=== PATIENT | female | born 1980 | race Two or more races ===

== ENCOUNTER 2019-03-29 13:56 | Emergency (ER) | payer MEDICAID, OTHER ==
[~2019-03-29] VITALS: Ht 157.5 cm; Wt 72.6 kg
[~2019-03-29 13:56] MED LIST: BENAZEPRIL HCL20 MG; CIPROFLOXACIN500 M2 ORAL; METRONIDAZOLE500 MG ORAL; MICONAZOLE 11 EACH VG; NITROFURANTOIN100 M2 ORAL; NORCO 5-325 TA1 EACH ORAL; PHENYTOIN SODI100 MG; TENORMIN50 MG ORAL; TYLENOL #21 EA; VIBRAMYCIN100 MG ORAL; ZOFRAN ODT4 MG ORAL
[2019-03-29 14:00] VITALS: BP 176/104
--- NOTE | 2019-03-29 14:00 | Emergency Room Report ---
History of Present Illness General Chief Complaint: Seizure Source: Patient, EMS Present Illness HPI 39-year-old female possible history of epilepsy on carbamazepine as well as Keppra, comes in by ambulance for breakthrough seizure, patient had a tonic- clonic seizure witnessed at work lasting less than a minute with postictal. No bowel bladder retention/incontinence, blood sugar greater than 100, vital signs stable, patient refusing to be seen at this hospital, patient wants to leave AGAINST MEDICAL ADVICE without proper evaluation. Allergies: Coded Allergies: LORAZEPAM (Unverified Allergy, Unknown, 03/12/19) Patient History Past Medical History: see triage record Last Menstrual Period: 09/08/17 Now: No Reviewed Nursing Documentation: PMH: Agreed; PSxH: Agreed Nursing Documentation-PMH Past Medical History: No History, Except For Hx Hypertension: Yes Hx Seizures: Yes Review of Systems All Other Systems: negative except mentioned in HPI Physical Exam Vital Signs Date Time Temp Pulse Resp B/P (MAP) Pulse Ox O2 Delivery O2 Flow Rate FiO2 03/29/19 13:50 99.0 93 16 176/104 (128) 96 Room Air Sp02 EP Interpretation: reviewed General Appearance: well appearing, no apparent distress Head: normocephalic, atraumatic Eyes: bilateral eye PERRL, bilateral eye EOMI ENT: hearing grossly normal, normal voice Neck: full range of motion, supple Respiratory: no respiratory distress, speaking full sentences Musculoskeletal: normal inspection, gait/station normal Neurologic: alert, normal gait Psychiatric: mood/affect normal Skin: no rash Medical Decision Making Diagnostic Impression: Primary Impression: Epileptic seizure, generalized ER Course Patient with epileptic seizure breakthrough, currently taking Carbamazepine as well as Keppra does not want an evaluation wants to leave AGAINST MEDICAL ADVICE. Patient understands risks. The patient has requested to leave the ED against medical advice. The patient reason(s) for leaving include, but are not limited to, the following: "I do not like this hospital". I believe this patient is of sound mind and competent to refuse medical care. The patient is responding and asking questions appropriately. The patient is oriented to person, place and time. The patient is not psychotic, delusional, suicidal, homicidal or hallucinating. The patient demonstrates a normal mental capacity to make decisions regarding their healthcare. The patient is clinically sober and does not appear to be under the influence of any illicit drugs at this time. The patient has been advised of the risks, in layman terms, of leaving AMA which include, but are not limited to , coma, permanent disability, loss of current lifestyle, delay in diagnosis. Alternatives have been offered - the patient remains steadfast in their wish to leave. The patient has been advised that should they change their mind they are welcome to return to this hospital, or any other, at any time. The patient understands that in no way does an AMA discharge mean that I do not want them to have the best medical care available. To this end, I have provided appropriate prescriptions, referrals, and discharge instructions. The patient did/ sign AMA paperwork. The above discussion was witnessed by another member of staff. . Last Vital Signs Date Time Temp Pulse Resp B/P (MAP) Pulse Ox O2 Delivery O2 Flow Rate FiO2 03/29/19 13:50 99.0 93 16 176/104 (128) 96 Room Air Disposition: AGAINST MEDICAL ADVICE Condition: Stable Referrals: [facility] Patient Instructions: Seizure, Adult Additional Instructions: The patient was provided with discharge instructions, notified to follow-up with a primary care doctor and or specialist in the next 24-48 hours, and to return to the ED if they have worsening of their symptoms. Please note that this report is being documented using [employer] Score[employer] technology. This can lead to erroneous entry secondary to incorrect interpretation by the dictating instrument. Jaylan Darden MD Mar 29, 2019 14:00
--- NOTE | 2019-03-29 14:00 | NUR ---
ED Nurse Note: pt arrived via EMS for sz. pt had a szxz at work that was witnessed by coworkers. en route to ED pt had a sz witnessed by EMS personel that lasted 30 seconds. per EMS pt's blood sugar was 132. she is currently nauseated and complaining of a 9/10 headache
--- NOTE | 2019-03-29 14:01 | NUR ---
ED Nurse Note: Dr. Darden saw pt in the ambulance bay, pt is AOx4, pt states that she does not want to be treated at this hospital because she "doesn't like this hospital" and would like to sign out AMA. Addendum: 03/29/[address] Darden advised nidia pt leaving, he explained the risks of signing out AMA. pt verbalized understanding of the risks of leaving and would still like to leave. We asked the pt if she would like to contact family members to take her home but she refused and walked out of the ER with all of her belongings.
== END 2019-03-29 14:01 | disposition left against medical advice (07) ==
LOC: EDBD 13:56 → EMR 13:58
DX: G40.409 Other generalized epilepsy and epileptic syndromes, not intractable, without status epilepticus (principal); I10 Essential (primary) hypertension
CPT/HCPCS: 99282

== ENCOUNTER 2019-04-16 12:53 | Emergency (ER) | payer OTHER ==
[~2019-04-16] VITALS: Ht 154.9 cm; Wt 89.4 kg
[2019-04-16] MEDS ORDERED: KEPPRA500 M4 ORAL (12:55)
[2019-04-16] MEDS ORDERED: Hydromorphone 0.5mg/0.5ml inj IVP ONE ×2 (13:00→15:15)
[2019-04-16] MEDS ORDERED: levETIRAcetam 500mg/NS100ml 100 ML IVPB ONE (13:00)
[2019-04-16 13:09] VITALS: BP 148/104
--- NOTE | 2019-04-16 13:12 | NUR ---
ED Nurse Note: pt brought in to ER from work due to s/p seizure x2 witnessed by coworkers. per pt she has been vomiting for last 3 days. pt currently aao x4 and ambulatory. skin clean and intact. calm and cooperative. no acute distress noted at this moment. pt denied head trauma. 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
--- NOTE | 2019-04-16 13:21 | Emergency Room Report ---
History of Present Illness General Chief Complaint: Seizure Source: Patient, EMS Present Illness HPI Presents post seizure by paramedics. Is happened to work. She is been vomiting for several days. She try to take her Keppra but was unable to because she threw the pills back up. Paramedics found the patient postictal and she gradually improved. She is complaining about a severe headache at this time and nausea. She believes she fell back and hit the back of her head and upper back and neck. She denies any numbness and is able to move her head without severe pain in her neck. After seizures she frequently has severe headaches. She rates the pain 9/10 at this time throbbing and throughout her head without radiation. She is uncertain why she is been vomiting recently. She does have Zofran it does not seem to help. She alleges that she swells up when she gets Ativan. She states Dilantin did not control her seizures. She does not drive. Bruise R inner arm. Unknown how this occurred. No fevers, chills, sore throat, chest pain, palpitations, diarrhea, dysuria, abdominal pain, shortness of breath, rashes, depression, anxiety, visual changes , dizziness. The patient was seen March 29 after a seizure and left AGAINST MEDICAL ADVICE. The patient was seen in 2014 for abdominal pain and was labeled at that time with narcotic seeking behavior. Allergies: Coded Allergies: IODINE (Verified Allergy, Unknown, 04/16/19) KETOROLAC (Verified Allergy, Unknown, 04/16/19) LORAZEPAM (Unverified Allergy, Unknown, 03/12/19) Patient History Past Medical History: see triage record, old chart reviewed Social History: Denies: smoking, alcohol use, drug use Social History Narrative Works at [employer] Last Menstrual Period: 09/02/2016 Reviewed Nursing Documentation: PMH: Agreed; PSxH: Agreed Nursing Documentation-PMH Past Medical History: No History, Except For Hx Hypertension: Yes Hx Seizures: Yes Review of Systems All Other Systems: negative except mentioned in HPI Physical Exam Vital Signs Date Time Temp Pulse Resp B/P (MAP) Pulse Ox O2 Delivery O2 Flow Rate FiO2 04/16/19 12:52 98.2 90 18 148/104 (119) 98 Room Air Sp02 EP Interpretation: reviewed, normal General Appearance: well appearing, no apparent distress, GCS 15 Head: normocephalic, other - Slight tenderness base of Eyes: bilateral eye normal inspection, bilateral eye PERRL, bilateral eye EOMI ENT: moist mucus membranes - No lingual trauma Neck: supple, no bony tend, tender - Base of neck bilateral Respiratory: chest non-tender, lungs clear, normal breath sounds Cardiovascular #1: regular rate, rhythm Cardiovascular #2: 2+ radial (R) Gastrointestinal: normal inspection, normal bowel sounds, non tender, no mass, non-distended Musculoskeletal: back normal, gait/station normal, normal range of motion Neurologic: alert, oriented x3, auto dismantler III-XII nml as tested, motor strength/tone normal, DTRs symmetric, sensory intact, cerebellar normal, speech normal Psychiatric: mood/affect normal Skin: no rash, warm/dry Medical Decision Making Diagnostic Impression: Primary Impression: Seizure Additional Impressions: UTI (urinary tract infection) Qualified Codes: N30.00 - Acute cystitis without hematuria Neck contusion Qualified Codes: S10.93XA - Contusion of unspecified part of neck, initial encounter Vomiting Qualified Codes: R11.2 - Nausea with vomiting, unspecified ER Course Patient presents post seizure. Differential includes noncompliance, inability to take medication due to vomiting, elect light imbalance, breakthrough seizure amongst others. Based on her neurologic exam CT of the head is not indicated at this time. However labs and chest x-ray and EKG are. The patient received IV hydration, Zofran, Dilaudid and a dose of Keppra. She says that she is allergic to Ativan. Based on her physical exam C-spine not indicated. In addition CT of the head is not indicated. EKG without injury. Chest x-ray no infiltrates. CBC unremarkable. CMP with minimal hypokalemia. Urinalysis with pyuria. Tox screen negative. Patient treated with Macrobid. Pain 12/27 - Dilaudid repeat. Discussed treatment plan with patient. Advised of the need to follow-up. Patient improved and stable for outpatient observation and treatment. Laboratory Tests Test 04/16/19 13:20 White Blood Count 8.1 K/UL (4.8-10.8) Red Blood Count 4.42 M/UL (4.20-5.40) Hemoglobin 13.9 G/DL (12.0-16.0) Hematocrit 39.6 % (37.0-47.0) Mean Corpuscular Volume 89 FL (80-99) Mean Corpuscular Hemoglobin 31.3 PG (27.0-31.0) H Mean Corpuscular Hemoglobin Concent 35.0 G/DL (32.0-36.0) Red Cell Distribution Width 10.8 % (11.6-14.8) L Platelet Count 316 K/UL (150-450) Mean Platelet Volume 6.4 FL (6.5-10.1) L Neutrophils (%) (Auto) 59.6 % (45.0-75.0) Lymphocytes (%) (Auto) 32.1 % (20.0-45.0) Monocytes (%) (Auto) 5.5 % (1.0-10.0) Eosinophils (%) (Auto) 1.7 % (0.0-3.0) Basophils (%) (Auto) 1.1 % (0.0-2.0) Urine Color Pale yellow Urine Appearance Clear Urine pH 5 (4.5-8.0) Urine Specific [place] 1.015 (1.005-1.035) Urine Protein Negative (NEGATIVE) Urine Glucose (UA) Negative (NEGATIVE) Urine Ketones Negative (NEGATIVE) Urine Blood 3+ (NEGATIVE) H Urine Nitrite Negative (NEGATIVE) Urine Bilirubin Negative (NEGATIVE) Urine Urobilinogen Normal MG/DL (0.0-1.0) Urine Leukocyte Esterase 2+ (NEGATIVE) H Urine RBC 2-4 /HPF (0 - 2) H Urine WBC 5-10 /HPF (0 - 2) H Urine Squamous Epithelial Cells Occasional /LPF Urine Bacteria Occasional /HPF (NONE) Sodium Level 142 MMOL/L (136-145) Potassium Level 3.2 MMOL/L (3.5-5.1) L Chloride Level 103 MMOL/L (98-107) Carbon Dioxide Level 30 MMOL/L (21-32) Anion Gap 9 mmol/L (5-15) Blood Urea Nitrogen 6 mg/dL (7-18) L Creatinine 0.6 MG/DL (0.55-1.30) Estimate Glomerular Filtration Rate > 60 mL/min (>60) Glucose Level 95 MG/DL (74-106) Calcium Level 9.2 MG/DL (8.5-10.1) Total Bilirubin 0.3 MG/DL (0.2-1.0) Aspartate Amino Transferase (AST) 21 U/L (15-37) Alanine Aminotransferase (ALT) 26 U/L (12-78) Alkaline Phosphatase 75 U/L (46-116) Total Creatine Kinase 80 U/L (26-308) Total Protein 8.8 G/DL (6.4-8.2) H Albumin 4.2 G/DL (3.4-5.0) Globulin 4.6 g/dL Albumin/Globulin Ratio 0.9 (1.0-2.7) L Salicylates Level 1.2 ug/mL (2.8-20) L Urine Opiates Screen Negative (NEGATIVE) Acetaminophen Level < 2 MCG/ML (10-30) L Urine Barbiturates Screen Negative (NEGATIVE) Phencyclidine (PCP) Screen Negative (NEGATIVE) Urine Amphetamines Screen Negative (NEGATIVE) Urine Benzodiazepines Screen Negative (NEGATIVE) Urine Cocaine Screen Negative (NEGATIVE) Urine Marijuana (THC) Screen Negative (NEGATIVE) Serum Alcohol < 3 mg/dL EKG Diagnostic Results Rate: normal Rhythm: NSR ST Segments: no acute changes Rhythm Strip Diag. Results EP Interpretation: yes Rhythm: NSR, no PVC's, no ectopy Chest X-Ray Diagnostic Results Chest X-Ray Diagnostic Results : Chest X-Ray Ordered: Yes # of Views/Limited/Complete: 1 View Indication: Other EP Interpretation: Yes Interpretation: no consolidation, no effusion, no pneumothorax Impression: No acute disease Last Vital Signs Date Time Temp Pulse Resp B/P (MAP) Pulse Ox O2 Delivery O2 Flow Rate FiO2 04/16/19 16:08 97.9 78 18 136/95 99 Room Air Status: improved Disposition: HOME, SELF-CARE Condition: Improved Scripts Promethazine HCl (Promethegan) 25 Mg Supp.rect 25 MG RECTAL Q6H PRN for Nausea & Vomiting, #6 SUPP Prov: Donny Farrell MD 04/16/19 Promethazine Hcl* (PHENERGAN*) 25 Mg Tablet 25 MG ORAL Q8HR, #8 TAB 0 Refills Prov: Donny Farrell MD 04/16/19 Acetaminophen With Codeine (T#3) (TYLENOL #3 TAB*) Y Tab 1 TAB ORAL Q6HR PRN for For Pain, #8 TAB Prov: Donny Farrell MD 04/16/19 Donny Farrell MD Apr 16, 2019 13:21
[2019-04-16 13:56] LABS: APPEARANCE,URINE CLEAR; BILIRUBIN, URINE NEGATIVE (NEGATIVE); COLOR,URINE PALE YELLOW; GLUCOSE, URINE (UA) NEGATIVE (NEGATIVE); KETONES,URINE NEGATIVE (NEGATIVE); LEUKOCYTE ESTERASE ,URINE 2+ (NEGATIVE); NITRITE,URINE NEGATIVE (NEGATIVE); PH,URINE 5 (4.5-8.0); PROTEIN,URINE NEGATIVE (NEGATIVE); UROBILINOGEN,URINE NORMAL MG/DL (0.0-1.0)
[2019-04-16 13:59] LABS: BASOPHILS % (AUTO) 1.1 % (0.0-2.0); EOSINOPHILS % (AUTO) 1.7 % (0.0-3.0); HEMATOCRIT 39.6 % (37.0-47.0); HEMOGLOBIN 13.9 G/DL (12.0-16.0); LYMPHOCYTES % (AUTO) 32.1 % (20.0-45.0); MEAN CORPUSCULAR VOLUME 89 FL (80-99); MONOCYTES % (AUTO) 5.5 % (1.0-10.0); NEUTROPHILS % (AUTO) 59.6 % (45.0-75.0); PLATELET COUNT 316 K/UL (150-450); RED BLOOD COUNT 4.42 M/UL (4.20-5.40); RED CELL DISTRIBUTION WIDTH 10.8 % (11.6-14.8); WHITE BLOOD COUNT 8.1 K/UL (4.8-10.8)
[2019-04-16 14:06] LABS: ANION GAP 9 mmol/L (5-15); BLOOD UREA NITROGEN 6 mg/dL (7-18); CALCIUM 9.2 MG/DL (8.5-10.1); CARBON DIOXIDE 30 MMOL/L (21-32); CHLORIDE 103 MMOL/L (98-107); CREATININE 0.6 MG/DL (0.55-1.30); POTASSIUM 3.2 MMOL/L (3.5-5.1); SODIUM 142 MMOL/L (136-145)
[2019-04-16 14:10] LABS: ALANINE AMINOTRANSFERASE 26 U/L (12-78); ALBUMIN 4.2 G/DL (3.4-5.0); ALBUMIN/GLOBULIN RATIO 0.9 (1.0-2.7); ALKALINE PHOSPHATASE 75 U/L (46-116); ASPARTATE AMINO TRANSFERASE 21 U/L (15-37); BILIRUBIN,TOTAL 0.3 MG/DL (0.2-1.0); CREATINE KINASE 80 U/L (26-308)
--- NOTE | 2019-04-16 14:13 | Diagnostic Imaging Report ---
Indication: Dyspnea Comparison: 03/12/2019 A single view chest radiograph was obtained. Findings: Cardiomediastinal appearance is within normal limits for age. The lungs are clear. Pulmonary vascularity is appropriate. The diaphragmatic contour is smooth and costophrenic angles are sharp. No pleural effusions are identified. The bones are unremarkable. Impression: No acute findings
[2019-04-16] MEDS ORDERED: PHENERGAN SUPP25 MG RECTAL (15:16)
[2019-04-16] MEDS ORDERED: PHENERGAN25 M1 ORAL (15:16)
[2019-04-16] MEDS ORDERED: ACETAMINOPHEN-1 EAC1 ORAL (15:16)
--- NOTE | 2019-04-16 16:09 | NUR ---
ED Nurse Note: Pt cleared by health care Provider for discharge. DC instructions/prescription was given and explained to pt and verbalized understanding of teachings. All medical deviecs such as ID band removed. Pt is AAO x4, ambulatory and left with all personal belongings.
--- NOTE | 2019-04-17 16:47 | Cardiology Report ---
APPROVED REPORT EKG Measurement Heart [id number] Normal sinus rhythm Normal ECG
== END 2019-04-16 16:10 | disposition home or self-care (01) ==
LOC: EDBD 12:53 → EMR 13:08
DX: G40.909 Epilepsy, unspecified, not intractable, without status epilepticus (principal); S10.93XA Contusion of unspecified part of neck, initial encounter; N30.00 Acute cystitis without hematuria; R11.2 Nausea with vomiting, unspecified; R06.00 Dyspnea, unspecified; I10 Essential (primary) hypertension; Z91.041 Radiographic dye allergy status; Z88.8 Allergy status to other drugs, medicaments and biological substances; W18.39XA Other fall on same level, initial encounter; Y92.9 Unspecified place or not applicable
CPT/HCPCS: 36415; 71045; 80053; 80307; 81003; 82550; 85025; 93005; 96374; 96375; 96376; G0480; G0481; J1170; J1953; J2405; S0028; Z7502; 99284

== ENCOUNTER 2019-04-18 14:30 | Emergency (ER) | payer OTHER ==
[~2019-04-18] VITALS: Ht 167.6 cm; Wt 72.6 kg
[~2019-04-18 14:30] MED LIST changes: +ACETAMINOPHEN-1 EAC1 ORAL; +KEPPRA500 M4 ORAL; +PHENERGAN SUPP25 MG RECTAL; +PHENERGAN25 M1 ORAL
[2019-04-18 14:35] VITALS: BP 188/114
--- NOTE | 2019-04-18 14:35 | NUR ---
ED Nurse Note: Patient brought in to ED by 62 from work c/o multiple episodes of seizures, EMs states that the patient has had atleast 7, at time of arrival patient is alert and oriented x4. multiple staff has tried to insert an IV on patient, IV started on right AC 20 gauge, no head trauma noted. complains of upper abdominal pain accompanied by nausea, patient was palced on seizure precautions, side rails padded and bed at lowest position. will continue to monitor
[2019-04-18] MEDS ORDERED: Morphine Sulfate 4mg/ml Inj (IV USE ONLY) IVP ONE ×2 (14:45→17:00)
[2019-04-18] MEDS ORDERED: levETIRAcetam 1,000mg/NS100ml 100 ML IVPB ONE (14:45)
--- NOTE | 2019-04-18 14:50 | Emergency Room Report ---
History of Present Illness General Chief Complaint: Seizure Source: Patient Present Illness HPI Disclaimer: Please note that this report is being documented using DRAGON technology. This can lead to erroneous entry secondary to incorrect interpretation by the dictating instrument. HPI: 39-year-old female with a history of seizure disorder on Keppra and carbamazepine presents for evaluation after witnessed seizure activity. The patient was at work and was witnessed to have brief, less than 15 seconds, seizure-like activity on the left side of the face and left upper extremity. She states she has both focal seizures and generalized tonic-clonic seizures. She was seen in the emergency department 2 days ago with a similar presentation. She saw a neurologist yesterday but has not received the results of her EEG. She does not drive. Denies any head injury and paramedics state that bystanders lowered her to the ground without head injury. She denies any headache or neck or back pain. She states she has been unable to hold down her Keppra and carbamazepine for the past few days given persistent nausea and upper abdominal pain. This was her same presentation 2 days ago. Denies diarrhea, fevers. Continues to pass normal stools. Denies dysuria or hematuria but was treated for UTI 2 days ago with Macrobid. PMH: Seizure disorder PSH: None Allergies: Lorazepam, Toradol Social Hx: Drug or alcohol use Allergies: Coded Allergies: IODINE (Verified Allergy, Unknown, 04/16/19) KETOROLAC (Verified Allergy, Unknown, 04/16/19) LORAZEPAM (Unverified Allergy, Unknown, 03/12/19) Patient History Last Menstrual Period: n/a Nursing Documentation-PMH Past Medical History: No History, Except For Hx Hypertension: Yes Hx Seizures: Yes Review of Systems All Other Systems: negative except mentioned in HPI Physical Exam Vital Signs Date Time Temp Pulse Resp B/P (MAP) Pulse Ox O2 Delivery O2 Flow Rate FiO2 04/18/19 14:28 99.0 88 18 177/114 (135) 98 Room Air General: Awake and alert, no acute distress HEENT: NC/AT. EOMI. PERRLA. Visual davis are full. No nystagmus. Facial expressions are symmetrical. No facial droop. Cardiovascular: RRR. S1 and S2 normal. No murmur appreciated Resp: Normal work of breathing. No cough, wheezing or crackles appreciated Abdomen: Abdomen is soft, nondistended. Tender in the epigastrium. No rebound. Abdomen is obese and difficult to appreciate any masses. Skin: Intact. No abrasions, laceration or rash over the exposed skin MSK: Normal tone and bulk. Moving all extremities. No obvious deformity. There is no drift in the upper or lower extremities bilaterally. Neuro: Awake and alert. Mentating appropriately. Facial expression symmetrical. No dysarthria, no ataxia. Sensation to light touch is intact over the upper and lower extremities. The patient has intact speech with good repetition, comprehension. Fund of knowledge is full. No aphasi Medical Decision Making ER Course 39-year-old female with a history of seizure disorder presents for evaluation after several seizures witnessed by bystanders at work without head injury. Patient had a similar presentation 2 days ago. She was treated with Macrobid for pyuria but denies any pelvic pain or dysuria currently. She has been unable to hold down her medications due to a gastric illness over the past few days. She is requesting medication for nausea and vomiting. Originally, she stated she does not want a laboratory work-up given her recent trip to the emergency department and neurology evaluation yesterday but now is amenable. We will start a metabolic and infectious work-up and repeat a urinalysis. Do not see indication for CT scans of the head or cervical spine but will obtain a CT scan of the abdomen and pelvis given her severe abdominal pain. Will load with Keppra, given IV fluid bolus, antiemetics and pain medication. Laboratory Tests Test 04/18/19 15:10 White Blood Count 7.5 K/UL (4.8-10.8) Red Blood Count 4.44 M/UL (4.20-5.40) Hemoglobin 14.2 G/DL (12.0-16.0) Hematocrit 39.1 % (37.0-47.0) Mean Corpuscular Volume 88 FL (80-99) Mean Corpuscular Hemoglobin 31.9 PG (27.0-31.0) H Mean Corpuscular Hemoglobin Concent 36.3 G/DL (32.0-36.0) H Red Cell Distribution Width 9.8 % (11.6-14.8) L Platelet Count 314 K/UL (150-450) Mean Platelet Volume 6.5 FL (6.5-10.1) Neutrophils (%) (Auto) 62.8 % (45.0-75.0) Lymphocytes (%) (Auto) 28.7 % (20.0-45.0) Monocytes (%) (Auto) 5.4 % (1.0-10.0) Eosinophils (%) (Auto) 1.8 % (0.0-3.0) Basophils (%) (Auto) 1.3 % (0.0-2.0) Urine Color Pale yellow Urine Appearance Slightly cloudy Urine pH 6.5 (4.5-8.0) Urine Specific [place] 1.015 (1.005-1.035) Urine Protein 1+ (NEGATIVE) H Urine Glucose (UA) Negative (NEGATIVE) Urine Ketones Negative (NEGATIVE) Urine Blood 3+ (NEGATIVE) H Urine Nitrite Negative (NEGATIVE) Urine Bilirubin Negative (NEGATIVE) Urine Urobilinogen Normal MG/DL (0.0-1.0) Urine Leukocyte Esterase 2+ (NEGATIVE) H Urine RBC 5-10 /HPF (0 - 2) H Urine WBC 15-20 /HPF (0 - 2) H Urine Squamous Epithelial Cells Many /LPF (NONE/OCC) H Urine Bacteria Moderate /HPF (NONE) H Urine HCG, Qualitative Negative (NEGATIVE) Sodium Level 141 MMOL/L (136-145) Potassium Level 3.2 MMOL/L (3.5-5.1) L Chloride Level 104 MMOL/L (98-107) Carbon Dioxide Level 29 MMOL/L (21-32) Anion Gap 8 mmol/L (5-15) Blood Urea Nitrogen 9 mg/dL (7-18) Creatinine 0.6 MG/DL (0.55-1.30) Estimate Glomerular Filtration Rate > 60 mL/min (>60) Glucose Level 100 MG/DL (74-106) Calcium Level 8.9 MG/DL (8.5-10.1) Total Bilirubin 0.3 MG/DL (0.2-1.0) Aspartate Amino Transferase (AST) 42 U/L (15-37) H Alanine Aminotransferase (ALT) 42 U/L (12-78) Alkaline Phosphatase 83 U/L (46-116) Total Protein 8.5 G/DL (6.4-8.2) H Albumin 4.1 G/DL (3.4-5.0) Globulin 4.4 g/dL Albumin/Globulin Ratio 0.9 (1.0-2.7) L Salicylates Level 1.0 ug/mL (2.8-20) L Urine Opiates Screen Positive (NEGATIVE) H Acetaminophen Level < 2 MCG/ML (10-30) L Urine Barbiturates Screen Negative (NEGATIVE) Carbamazepine (Tegretol) Level 10.1 ug/mL (4.0-12.0) Phencyclidine (PCP) Screen Negative (NEGATIVE) Urine Amphetamines Screen Negative (NEGATIVE) Urine Benzodiazepines Screen Negative (NEGATIVE) Urine Cocaine Screen Negative (NEGATIVE) Urine Marijuana (THC) Screen Negative (NEGATIVE) Serum Alcohol < 3 mg/dL EKG Diagnostic Results EKG Time: 15:41 Rate: normal Rhythm: NSR ST Segments: no acute changes Other Impression Sinus rhythm with normal axis, normal intervals, no ST segment changes. There are inverted T waves in the inferior leads, III, aVF as well as in V5, V6. Rhythm Strip Diag. Results Rhythm Strip Time: 15:41 EP Interpretation: yes Rate: 80s Rhythm: NSR, no PVC's, no ectopy Reevaluation Time: 17:43 Last Vital Signs Date Time Temp Pulse Resp B/P (MAP) Pulse Ox O2 Delivery O2 Flow Rate FiO2 04/18/ 14:28 99.0 88 18 177/114 (135) 98 Room Air Reevaluation Impression CT scan of the abdomen and pelvis is largely unremarkable. Labs have returned within normal limits. No significant white count, normal renal function, no electrolyte abnormalities aside from slight hypokalemia demonstrated on prior ER visits. Carbamazepine level is therapeutic. Patient is positive for opiates which she received in the emergency department prior to giving us a urine sample. There is evidence of acute urinary tract infection. She has been prescribed Macrobid but unable to take it over the past few days given her significant vomiting. We will discontinue Phenergan and start the patient on Zofran. She is instructed to continue taking her Macrobid. She will follow-up with her neurologist and continue her anti-epileptic medications as prescribed for now. Patient does not drive. We discussed safety precautions regarding her seizure disorder. She is to follow-up the results of her recent neurologic testing and to discuss with her neurologist possible medication adjustments given her frequent seizures. Her abdominal pain is now controlled. She will be discharged home with outpatient follow-up. She understands and agrees with this treatment plan will be discharged. Disposition: HOME, SELF-CARE Condition: Improved Scripts Ondansetron Odt* (ZOFRAN ODT*) 4 Mg Tab.rapdis 4 MG BC EVERY 6 HOURS PRN for Nausea & Vomiting, #203 TAB 0 Refills Prov: James Gallegos MD 04/18/19 Acetaminophen With Codeine (T#3) (TYLENOL #3 TAB*) Y Tab 1 TAB ORAL Q6HR PRN for For Pain, #8 TAB Prov: James Gallegos MD 04/18/19 James Gallegos MD Apr 18, 2019 14:50
[2019-04-18] MEDS ORDERED: Omnipaque-300 100ml vial INJ PRN (15:30)
[2019-04-18] MEDS ORDERED: DiphenhydrAMINE 50mg/ml Inj IVP ONE (15:30)
[2019-04-18 15:48] LABS: BILIRUBIN, URINE NEGATIVE (NEGATIVE); COLOR,URINE PALE YELLOW; GLUCOSE, URINE (UA) NEGATIVE (NEGATIVE); KETONES,URINE NEGATIVE (NEGATIVE); LEUKOCYTE ESTERASE ,URINE 2+ (NEGATIVE); NITRITE,URINE NEGATIVE (NEGATIVE); PH,URINE 6.5 (4.5-8.0); PROTEIN,URINE 1+ (NEGATIVE); UROBILINOGEN,URINE NORMAL MG/DL (0.0-1.0)
[2019-04-18 15:51] LABS: APPEARANCE,URINE SLIGHTLY CLOUDY
[2019-04-18 16:03] LABS: BASOPHILS % (AUTO) 1.3 % (0.0-2.0); EOSINOPHILS % (AUTO) 1.8 % (0.0-3.0); HEMATOCRIT 39.1 % (37.0-47.0); HEMOGLOBIN 14.2 G/DL (12.0-16.0); LYMPHOCYTES % (AUTO) 28.7 % (20.0-45.0); MEAN CORPUSCULAR VOLUME 88 FL (80-99); MONOCYTES % (AUTO) 5.4 % (1.0-10.0); NEUTROPHILS % (AUTO) 62.8 % (45.0-75.0); PLATELET COUNT 314 K/UL (150-450); RED BLOOD COUNT 4.44 M/UL (4.20-5.40); RED CELL DISTRIBUTION WIDTH 9.8 % (11.6-14.8); WHITE BLOOD COUNT 7.5 K/UL (4.8-10.8)
[2019-04-18 16:05] LABS: ANION GAP 8 mmol/L (5-15); BLOOD UREA NITROGEN 9 mg/dL (7-18); CALCIUM 8.9 MG/DL (8.5-10.1); CARBON DIOXIDE 29 MMOL/L (21-32); CHLORIDE 104 MMOL/L (98-107); CREATININE 0.6 MG/DL (0.55-1.30); POTASSIUM 3.2 MMOL/L (3.5-5.1); SODIUM 141 MMOL/L (136-145)
[2019-04-18 16:10] LABS: ALANINE AMINOTRANSFERASE 42 U/L (12-78); ALBUMIN 4.1 G/DL (3.4-5.0); ALBUMIN/GLOBULIN RATIO 0.9 (1.0-2.7); ALKALINE PHOSPHATASE 83 U/L (46-116); ASPARTATE AMINO TRANSFERASE 42 U/L (15-37); BILIRUBIN,TOTAL 0.3 MG/DL (0.2-1.0)
--- NOTE | 2019-04-18 17:01 | Diagnostic Imaging Report ---
Indication: Abdominal pain Technique: Continuous helical transaxial imaging of the abdomen and pelvis was obtained from the lung bases to the pubic symphysis during intravenous contrast administration. Coronal 2-D reformats were also obtained. Study obtained in a Siemens sensation [address] Automatic Exposure Control was utilized. Total Dose length Product (DLP): [address] Dose Index Volume (CTDIvol): 2.6 mGy Comparison: 10/05/2013 Findings: The lung bases are clear. Cholecystectomy noted. Liver and spleen are unremarkable. There is no hydronephrosis. No free fluid identified. No evidence of bowel obstruction. Uterus noted. Appendix is normal. Urinary bladder is unremarkable. IMPRESSION: No acute findings Status post cholecystectomy. The CT scanner at [facility] is accredited by the [employer] and the scans are performed using dose optimization techniques as appropriate to a performed exam including Automatic Exposure control.
[2019-04-18 17:18] VITALS: BP 170/105
[2019-04-18 17:40] VITALS: BP 150/88
[2019-04-18] MEDS ORDERED: ONDANSETRON ODT4 MG BC (17:40)
[2019-04-18] MEDS ORDERED: ACETAMINOPHEN-1 EAC1 ORAL (17:40)
--- NOTE | 2019-04-18 17:40 | NUR ---
ER DISCHARGE NOTE: Patient is cleared to be discharged per ERMD, pt is aox4, on room air, with stable vital signs. pt was given dc and prescription instructions, pt was able to verbalize understanding, pt id band and iv site removed without complications. pt is able to ambulate with steady gait. pt took all belongings.
--- NOTE | 2019-04-20 15:22 | Cardiology Report ---
APPROVED REPORT EKG Measurement Heart [id number] [id number] Normal sinus rhythm T wave abnormality, consider inferior ischemia Abnormal ECG
== END 2019-04-18 17:40 | disposition home or self-care (01) ==
LOC: EDBD 14:30 → EMR 15:00
DX: G40.909 Epilepsy, unspecified, not intractable, without status epilepticus (principal); R10.10 Upper abdominal pain, unspecified; R11.0 Nausea; Z88.8 Allergy status to other drugs, medicaments and biological substances; I10 Essential (primary) hypertension; E87.6 Hypokalemia; N39.0 Urinary tract infection, site not specified
CPT/HCPCS: 36415; 74177; 80053; 80156; 80307; 81003; 81025; 85025; 87086; 93005; 96361; 96365; 96375; 96376; G0480; G0481; J1200; J1953; J2270; J2405; Q9967; Z7502; 99284; J7030

== ENCOUNTER 2019-04-22 13:00 | Emergency (ER) | payer OTHER ==
[~2019-04-22] VITALS: Ht 167.6 cm; Wt 81.6 kg
[2019-04-22 13:00] VITALS: BP 145/85
[~2019-04-22 13:00] MED LIST changes: +ONDANSETRON ODT4 MG BC
--- NOTE | 2019-04-22 13:00 | NUR ---
ED Nurse Note: Pt BIBA RA 61 from [employer] [place] d/t having a seizure witnessed by co-workers. Seizure lasted for 40 seconds; pt denies trauma. Pt is A&O x4, V/S stable with no s/s of acute distress noted at this time. Pt is connected to the threat monitoring analyst, side rails padded with bed in lowest position.
--- NOTE | 2019-04-22 13:05 | Emergency Room Report ---
History of Present Illness General Chief Complaint: Seizure Present Illness HPI Patient is a 39-year-old female brought in by EMS after witnessed seizure. Patient was working at [employer]. She was noted to have approximately 4-minute seizure. 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 She had seizure approximately 2 to 3 days ago. She had multiple episodes of vomiting recently and had been having increased difficulty keeping down her medications. Patient states she additionally takes atenolol for hypertension.Patient states that she has not had a period for approximately 1-1/ 2 years.Reports prior tubal ligation. Allergies: Coded Allergies: IODINE (Verified Allergy, Unknown, 04/16/19) KETOROLAC (Verified Allergy, Unknown, 04/16/19) LORAZEPAM (Unverified Allergy, Unknown, 03/12/19) Patient History Past Medical History: see triage record Reviewed Nursing Documentation: PMH: Agreed; PSxH: Agreed Nursing Documentation-PMH Hx Hypertension: Yes Hx Seizures: Yes Review of Systems All Other Systems: negative except mentioned in HPI Physical Exam Vital Signs Date Time Temp Pulse Resp B/P (MAP) Pulse Ox O2 Delivery O2 Flow Rate FiO2 04/22/19 12:53 98.4 95 16 15/85 (62) 97 Sp02 EP Interpretation: reviewed, normal General Appearance: normal inspection, well appearing, no apparent distress, alert, GCS 15, obese Head: atraumatic ENT: normal ENT inspection, hearing grossly normal, normal voice Neck: normal inspection, full range of motion, supple, no bony tend Respiratory: normal inspection, lungs clear, normal breath sounds, no respiratory distress, no retraction, no wheezing Cardiovascular #1: regular rate, rhythm, no edema Gastrointestinal: normal inspection, normal bowel sounds, non tender, soft, no guarding, no hernia Genitourinary: no CVA tenderness Musculoskeletal: normal inspection, back normal, normal range of motion Neurologic: normal inspection, alert, oriented x3, responsive, 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 Differential diagnosis include was not limited to medication noncompliance, head injury, urinary tract infection, among others. Because of complexity of patient's case laboratory tests were ordered. Patient was noted to be awake and alert. Patient was noted to have brief seizure. She did complain of some headache and Tylenol was ordered. Patient apparently decided that she did not want to start remain in the hospital subsequently and decided that she wanted to leave the hospital without laboratory testing results. Patient was advised that she could return at any time. Patient does not appear to require any narcotic pain medications at this time. And this would likely make her headaches worse. Patient also refused anticonvulsants in the emergency department. Patient was advised risk benefits alternatives of leaving AGAINST MEDICAL ADVICE and she indicated understanding and wished to leave. She did not appear to have any continued alteration of her mental status at the time of AMA. Labs Test 04/22/19 13:35 White Blood Count 7.7 K/UL (4.8-10.8) Red Blood Count 4.28 M/UL (4.20-5.40) Hemoglobin 13.5 G/DL (12.0-16.0) Hematocrit 38.2 % (37.0-47.0) Mean Corpuscular Volume 89 FL (80-99) Mean Corpuscular Hemoglobin 31.5 PG (27.0-31.0) Mean Corpuscular Hemoglobin Concent 35.3 G/DL (32.0-36.0) Red Cell Distribution Width 10.6 % (11.6-14.8) Platelet Count 327 K/UL (150-450) Mean Platelet Volume 6.3 FL (6.5-10.1) Neutrophils (%) (Auto) 59.2 % (45.0-75.0) Lymphocytes (%) (Auto) 31.5 % (20.0-45.0) Monocytes (%) (Auto) 6.2 % (1.0-10.0) Eosinophils (%) (Auto) 2.3 % (0.0-3.0) Basophils (%) (Auto) 0.8 % (0.0-2.0) Urine Color Yellow Urine Appearance Clear Urine pH 6.5 (4.5-8.0) Urine Specific [place] 1.015 (1.005-1.035) Urine Protein 1+ (NEGATIVE) Urine Glucose (UA) Negative (NEGATIVE) Urine Ketones 1+ (NEGATIVE) Urine Blood 2+ (NEGATIVE) Urine Nitrite Negative (NEGATIVE) Urine Bilirubin Negative (NEGATIVE) Urine Urobilinogen Normal MG/DL (0.0-1.0) Urine Leukocyte Esterase 2+ (NEGATIVE) Urine RBC 2-4 /HPF (0 - 2) Urine WBC 5-10 /HPF (0 - 2) Urine Squamous Epithelial Cells Few /LPF (NONE/OCC) Urine Bacteria Few /HPF (NONE) Urine Mucus Few /LPF (NONE/OCC) Urine HCG, Qualitative Negative (NEGATIVE) Troponin I 0.000 ng/mL (0.000-0.056) Carbamazepine (Tegretol) Level 8.6 ug/mL (4.0-12.0) Last Vital Signs Date Time Temp Pulse Resp B/P (MAP) Pulse Ox O2 Delivery O2 Flow Rate FiO2 04/22/19 12:53 98.4 95 16 15/85 (62) 97 Status: improved Disposition: AGAINST MEDICAL ADVICE Condition: Stable Matt Ball MD Apr 22, 2019 13:05
[2019-04-22] MEDS ORDERED: levETIRAcetam 500 MG in D5W 110 ML IV ONE (13:15)
--- NOTE | 2019-04-22 13:40 | NUR ---
ED Nurse Note: Patient refused Keppra IV and Tylenol. ERMD aware.
[2019-04-22] MEDS ORDERED: Acetaminophen 500mg (ES) tab ORAL ONE (13:45)
[2019-04-22 13:50] VITALS: BP 138/79
[2019-04-22 13:51] LABS: BASOPHILS % (AUTO) 0.8 % (0.0-2.0); EOSINOPHILS % (AUTO) 2.3 % (0.0-3.0); HEMATOCRIT 38.2 % (37.0-47.0); HEMOGLOBIN 13.5 G/DL (12.0-16.0); LYMPHOCYTES % (AUTO) 31.5 % (20.0-45.0); MEAN CORPUSCULAR VOLUME 89 FL (80-99); MONOCYTES % (AUTO) 6.2 % (1.0-10.0); NEUTROPHILS % (AUTO) 59.2 % (45.0-75.0); PLATELET COUNT 327 K/UL (150-450); RED BLOOD COUNT 4.28 M/UL (4.20-5.40); RED CELL DISTRIBUTION WIDTH 10.6 % (11.6-14.8); WHITE BLOOD COUNT 7.7 K/UL (4.8-10.8)
[2019-04-22 13:56] LABS: APPEARANCE,URINE CLEAR; BILIRUBIN, URINE NEGATIVE (NEGATIVE); GLUCOSE, URINE (UA) NEGATIVE (NEGATIVE); KETONES,URINE 1+ (NEGATIVE); LEUKOCYTE ESTERASE ,URINE 2+ (NEGATIVE); NITRITE,URINE NEGATIVE (NEGATIVE); PH,URINE 6.5 (4.5-8.0); PROTEIN,URINE 1+ (NEGATIVE); UROBILINOGEN,URINE NORMAL MG/DL (0.0-1.0)
[2019-04-22 14:03] LABS: COLOR,URINE YELLOW
--- NOTE | 2019-04-22 14:03 | NUR ---
AMA: SEE AMA FORM. Patient is aox4, on room air, with stable vital signs. pt was instructed about the risks of leaving AMA. Pt was able to verbalize understanding, pt id band and iv site removed without complications. pt is able to ambulate with steady gait. pt took all belongings.
--- NOTE | 2019-04-24 07:27 | Cardiology Report ---
APPROVED REPORT EKG Measurement Heart [id number] [place] 176P9 [id number] Normal sinus rhythm Normal ECG
== END 2019-04-22 14:50 | disposition home or self-care (01) ==
LOC: EDBD 13:00 → EMR 14:45
DX: G40.909 Epilepsy, unspecified, not intractable, without status epilepticus (principal); I10 Essential (primary) hypertension; Z79.899 Other long term (current) drug therapy; R11.10 Vomiting, unspecified; Z91.041 Radiographic dye allergy status; Z88.8 Allergy status to other drugs, medicaments and biological substances; R51 Headache
CPT/HCPCS: 36415; 80156; 81003; 81025; 82962; 84484; 85025; 93005; Z7502; 99283

== ENCOUNTER 2019-05-04 13:06 | Emergency (ER) | payer OTHER ==
[~2019-05-04] VITALS: Ht 162.6 cm; Wt 68.0 kg
[2019-05-04 13:10] VITALS: BP 158/106
--- NOTE | 2019-05-04 13:10 | NUR ---
ED Nurse Note: PT BROUGHT IN BY RA Guerra FROM WORK DUE TO SEIZURE ACTIVITY TONIC CLONIC X 60 SEC WITNESSED BY HER CO WORKERS. PT TOOK HER KEPPRA 500MG THIS MORNING. PT CAME IN WITH A HEADACHE AND NECK PAIN. HARD NECK-COLLAR IN PLACE. AAO X4, FOLLOWS COMMANDS WITH NON LABORED BREATHING.
[2019-05-04] MEDS ORDERED: Acetaminophen 500mg (ES) tab ORAL ONE (13:30)
--- NOTE | 2019-05-04 13:40 | Emergency Room Report ---
History of Present Illness General Chief Complaint: Seizure Source: Patient Present Illness HPI This patient is well-known to [facility]. She has a history of seizure disorder and regularly presents with pseudoseizure and narcotic seeking behavior. She was recently seen within the last week for the same issue. She states that today at work she had a witnessed tonic-clonic seizure. She states she has been taking her Keppra. She states she was not feeling well last night and today at work. She works at [employer]. She states she was talking to a coworker whenever she woke up on the "floor." She states that she does not like [facility] and was very upset that EMS brought her to this facility. She states that she always has a headache and the physicians at this facility treat her poorly and treat her like she is a drug addict. That she gets a headache after her seizures. She states she is allergic to Toradol and she does not take Motrin. She states she does not want to be seen here at [facility]. Allergies: Coded Allergies: IODINE (Verified Allergy, Unknown, 04/16/19) KETOROLAC (Verified Allergy, Unknown, 04/16/19) LORAZEPAM (Unverified Allergy, Unknown, 03/12/19) Patient History Past Medical History: see triage record, HTN, seizures Social History: Denies: smoking, alcohol use, drug use Last Menstrual Period: n/a Reviewed Nursing Documentation: PMH: Agreed; PSxH: Agreed Nursing Documentation-PMH Hx Hypertension: Yes Hx Seizures: Yes Review of Systems All Other Systems: negative except mentioned in HPI Physical Exam Vital Signs Date Time Temp Pulse Resp B/P (MAP) Pulse Ox O2 Delivery O2 Flow Rate FiO2 05/04/19 13:00 98.4 89 18 190/116 (140) 98 Room Air Sp02 EP Interpretation: reviewed, normal General Appearance: no apparent distress, alert, GCS 15, non-toxic Head: normocephalic, atraumatic Eyes: bilateral eye normal inspection ENT: hearing grossly normal, normal pharynx, no angioedema, normal voice Neck: normal inspection, full range of motion Respiratory: chest non-tender, lungs clear, normal breath sounds, no respiratory distress, no retraction, no accessory muscle use, speaking full sentences Cardiovascular #1: regular rate, rhythm, no edema Rectal: deferred Musculoskeletal: back normal, gait/station normal, normal range of motion Neurologic: alert, oriented x3, responsive, motor strength/tone normal, sensory intact, speech normal Psychiatric: judgement/insight normal, memory normal, mood/affect normal, no suicidal/homicidal ideation Skin: no rash, normal color Medical Decision Making Diagnostic Impression: Primary Impression: Seizure disorder ER Course This patient primarily complained about the care that she receives at this facility. I did explain to the patient that I was happy to evaluate her in a respectful manner. The patient has recently had blood work and so I did not feel that laboratory evaluation was indicated. I had plan on obtaining a EKG, cxr and urinalysis and giving her Keppra and oral acetaminophen. However, when I left the room the patient eloped from the emergency department. I suspect this patient is narcotic seeking as she had consistent behavior with this. She was treated very respectful and kindly by myself and the nursing staff. Last Vital Signs Date Time Temp Pulse Resp B/P (MAP) Pulse Ox O2 Delivery O2 Flow Rate FiO2 05/04/19 13:10 98.6 80 16 158/106 98 Room Air Status: improved Disposition: ELOPED Condition: Stable Haylee Rae DO May 04, 2019 13:40
[2019-05-04 13:44] VITALS: BP 158/106
--- NOTE | 2019-05-04 13:44 | NUR ---
ED Nurse Note: PT WAS NOT FOUND IN ER AND [facility]. NO IV ACCESS. AAO X4 AND AMBULATORY. DR RIVAS AND CHARGE NURSE WERE NOTIFIED.
== END 2019-05-04 13:44 | disposition left against medical advice (07) ==
LOC: EDBD 13:06 → EMR 13:30
DX: G40.909 Epilepsy, unspecified, not intractable, without status epilepticus (principal); I10 Essential (primary) hypertension; Z88.8 Allergy status to other drugs, medicaments and biological substances; Z53.29 Procedure and treatment not carried out because of patient's decision for other reasons
CPT/HCPCS: 99283

== ENCOUNTER 2019-05-11 09:47 | Emergency (ER) | payer OTHER ==
[~2019-05-11] VITALS: Ht 154.9 cm; Wt 84.8 kg
[2019-05-11] MEDS ORDERED: CARBAMAZEPINE200 MG ORAL (09:50)
[2019-05-11 10:00] VITALS: BP 187/131
--- NOTE | 2019-05-11 10:00 | NUR ---
ED Nurse Note:pt. was BIBA from work, s/p seizures VSS, A/Ox4 ambulatory with steady gait, seizure precautions and placed on marketing services vice president
--- NOTE | 2019-05-11 10:03 | Emergency Room Report ---
History of Present Illness General Chief Complaint: Seizure Source: Patient, Medical Record Present Illness HPI Patient presents with complaints of seizure activity Patient reports that she gets multiple seizures she is on 2 different medications including Keppra She has been having her medications adjusted by her physician Also reports that she has been under increased stress recently also had a mild upper respiratory infection Feels that these are lowering her threshold for seizure activity Patient also gets increasingly worsening headaches after her seizures Which is again present today after her seizure Patient reports that she was at work she was in the back room when she was reported to have a tonic-clonic witnessed seizure Patient had complained of some low back pain After a fall she had yesterday after a seizure activity Allergies: Coded Allergies: IODINE (Verified Allergy, Unknown, 04/16/19) KETOROLAC (Verified Allergy, Unknown, 04/16/19) LORAZEPAM (Unverified Allergy, Unknown, 03/12/19) Patient History Past Medical History: see triage record Last Menstrual Period: 09/04/2017 Reviewed Nursing Documentation: PMH: Agreed; PSxH: Agreed Nursing Documentation-PMH Past Medical History: No History, Except For Hx Hypertension: Yes Hx Gastrointestinal Problems: Yes - cholecystectomy Hx Seizures: Yes Review of Systems All Other Systems: negative except mentioned in HPI Physical Exam Vital Signs Date Time Temp Pulse Resp B/P (MAP) Pulse Ox O2 Delivery O2 Flow Rate FiO2 05/11/19 09:45 98.2 84 16 187/131 (149) 99 Room Air Sp02 EP Interpretation: reviewed, normal General Appearance: well appearing, no apparent distress Head: normocephalic, atraumatic Eyes: bilateral eye PERRL, bilateral eye EOMI ENT: hearing grossly normal, normal pharynx, TMs + canals normal, uvula midline Neck: full range of motion, supple, no meningismus, no bony tend Respiratory: lungs clear, normal breath sounds, no rhonchi, no respiratory distress, no retraction, no accessory muscle use Cardiovascular #1: normal peripheral pulses, regular rate, rhythm, no edema, no gallop, no JVD, no murmur Gastrointestinal: normal bowel sounds, non tender, soft, no mass, no organomegaly, non-distended, no guarding, no hernia, no pulsatile mass, no rebound Genitourinary: no CVA tenderness Musculoskeletal: normal inspection Neurologic: motor strength/tone 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, 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, oriented x3 , sensory intact, responsive Psychiatric: mood/affect normal Skin: no rash Lymphatic: normal inspection, no adenopathy Medical Decision Making Diagnostic Impression: Primary Impression: Seizure disorder Additional Impression: Headache ER Course Multiple differentials and consideration including but not limited to neurological, neurosurgical infectious process, Patient is neurologically intact has a benign evaluation at this time continues to feel better I did not feel that further imaging was required given the exam and previous history Patient remains appropriate and will have close outpatient follow-up Rhythm Strip Diag. Results EP Interpretation: yes Rate: 80 Rhythm: NSR, no PVC's, no ectopy Last Vital Signs Date Time Temp Pulse Resp B/P (MAP) Pulse Ox O2 Delivery O2 Flow Rate FiO2 05/11/19 09:45 98.2 84 16 187/131 (149) 99 Room Air Status: improved Disposition: HOME, SELF-CARE Condition: Improved Referrals: [facility],REFERRING (PCP) Additional Instructions: Patient is provided with the discharge instructions notified to follow up with primary doctor in the next 2-3 days otherwise return to the er with any worsening symptoms. Please note that this report is being documented using [employer] technology. This can lead to erroneous entry secondary to incorrect interpretation by the dictating instrument. Adolfo Humphrey DO May 11, 2019 10:03
[2019-05-11] MEDS ORDERED: Tylenol #3 tab (300mg/30mg) ORAL ONE (10:15)
[2019-05-11 10:48] VITALS: BP 149/100
[2019-05-11 10:49] VITALS: BP 149/100
--- NOTE | 2019-05-11 10:50 | NUR ---
ER DISCHARGE NOTE: Patient is cleared to be discharged per ERMD, pt is aox4, on room air, with stable vital signs. pt was given dc instructions, pt was able to verbalize understanding, pt is able to ambulate with steady gait. pt took all belongings.
== END 2019-05-11 11:00 | disposition home or self-care (01) ==
LOC: EDBD 09:47 → EMR 09:53
DX: G40.909 Epilepsy, unspecified, not intractable, without status epilepticus (principal); R51 Headache; M54.5 Low back pain; I10 Essential (primary) hypertension; Z90.49 Acquired absence of other specified parts of digestive tract; Z88.8 Allergy status to other drugs, medicaments and biological substances
CPT/HCPCS: 99283

== ENCOUNTER 2019-05-14 12:03 | Emergency (ER) | payer OTHER ==
[~2019-05-14] VITALS: Ht 154.9 cm; Wt 89.4 kg
--- NOTE | 2019-05-14 12:02 | NUR ---
ED Nurse Note: PT ARRIVED WITH RA 69, D/T SEIZURE AT WORK X 30 MINUTES AGO. PT DENIES HEAD TRAUMA. PT IS AOX 4 ON ROOM AIR, SINUS RHYTHM. PT BS IS 93. VSS, PT REFUSES IV BLOOD DRAW AND MEDICATION ADMINSITRATION. PT STATES "I DONT LIKE THIS HOSPITAL ID RATHER BE AMA. I DONT WANT ANYTHING DONE HERE". ERMD AT BEDSIDE SPEAKING TO PT.
[~2019-05-14 12:03] MED LIST changes: +CARBAMAZEPINE200 MG ORAL; +D5NS 1,000 ML IV ONE
[2019-05-14 12:04] VITALS: BP 130/70
--- NOTE | 2019-05-14 12:06 | NUR ---
AMA: SEE AMA FORM.
[2019-05-14] MEDS ORDERED: KEPPRA1000 MG ORAL (12:09)
--- NOTE | 2019-05-14 12:09 | Emergency Room Report ---
History of Present Illness General Chief Complaint: Seizure Source: Patient Present Illness HPI 39-year-old female presents with witnessed seizure tonic-clonic lasting 30 seconds, no known aggravating relieving factors severity was moderate, patient had a glucose in the rig of 96 patient states she feels fine, no bowel bladder incontinence, no tongue biting, patient is back to baseline refusing treatment Allergies: Coded Allergies: IODINE (Verified Allergy, Unknown, 04/16/19) KETOROLAC (Verified Allergy, Unknown, 04/16/19) LORAZEPAM (Unverified Allergy, Unknown, 03/12/19) Patient History Past Medical History: see triage record Reviewed Nursing Documentation: PMH: Agreed; PSxH: Agreed Nursing Documentation-PMH Hx Hypertension: Yes Hx Gastrointestinal Problems: Yes - cholecystectomy Hx Seizures: Yes Review of Systems All Other Systems: negative except mentioned in HPI Physical Exam Vital Signs Date Time Temp Pulse Resp B/P (MAP) Pulse Ox O2 Delivery O2 Flow Rate FiO2 05/14/19 11:55 98.1 87 19 130/70 (90) 98 Room Air Sp02 EP Interpretation: reviewed, normal General Appearance: well appearing, no apparent distress, alert Head: normocephalic, atraumatic Eyes: bilateral eye PERRL, bilateral eye EOMI ENT: uvula midline, moist mucus membranes Neck: supple, thyroid normal, supple/symm/no masses Respiratory: lungs clear, no respiratory distress, no retraction, no accessory muscle use Cardiovascular #1: normal peripheral pulses, regular rate, rhythm, no edema, no gallop, no murmur Gastrointestinal: non tender, soft, no guarding, no rebound Musculoskeletal: normal inspection Neurologic: alert, oriented x3 Psychiatric: mood/affect normal Skin: no rash, warm/dry Medical Decision Making Diagnostic Impression: Primary Impression: Epileptic seizure, generalized Additional Impression: UTI (urinary tract infection) Qualified Codes: N30.01 - Acute cystitis with hematuria ER Course 39-year-old female presents with seizure disorder, refusing treatment states she is back to baseline does not want any treatment states she does not like this hospital The patient has requested to leave the ED against medical advice. The patient reason(s) for leaving include, but are not limited to, the following: "I do not like this hospital". I believe this patient is of sound mind and competent to refuse medical care. The patient is responding and asking questions appropriately. The patient is oriented to person, place and time. The patient is not psychotic, delusional, suicidal, homicidal or hallucinating. The patient demonstrates a normal mental capacity to make decisions regarding their healthcare. The patient is clinically sober and does not appear to be under the influence of any illicit drugs at this time. The patient has been advised of the risks, in layman terms, of leaving AMA which include, but are not limited to , coma, permanent disability, loss of current lifestyle, delay in diagnosis. Alternatives have been offered - the patient remains steadfast in their wish to leave. The patient has been advised that should they change their mind they are welcome to return to this hospital, or any other, at any time. The patient understands that in no way does an AMA discharge mean that I do not want them to have the best medical care available. To this end, I have provided appropriate prescriptions, referrals, and discharge instructions. The patient did sign AMA paperwork. The above discussion was witnessed by another member of staff. She was amenable to me increasing her keppra. Dispo home w/ return precautions Evaluation 12:10 PM, patient had a seizure as she was walking out patient amenable to staying. CT head negative, labs show a positive UTI, which is possibly triggering her seizures Ceftriaxone started, patient also given a Keppra load will increase her home Keppra Disposition home with return precautions Laboratory Tests Test 05/14/19 12:15 05/14/19 12:51 White Blood Count 8.4 K/UL (4.8-10.8) Red Blood Count 4.76 M/UL (4.20-5.40) Hemoglobin 14.7 G/DL (12.0-16.0) Hematocrit 42.6 % (37.0-47.0) Mean Corpuscular Volume 89 FL (80-99) Mean Corpuscular Hemoglobin 30.8 PG (27.0-31.0) Mean Corpuscular Hemoglobin Concent 34.4 G/DL (32.0-36.0) Red Cell Distribution Width 11.2 % (11.6-14.8) L Platelet Count 324 K/UL (150-450) Mean Platelet Volume 6.3 FL (6.5-10.1) L Neutrophils (%) (Auto) 60.1 % (45.0-75.0) Lymphocytes (%) (Auto) 28.3 % (20.0-45.0) Monocytes (%) (Auto) 5.0 % (1.0-10.0) Eosinophils (%) (Auto) 5.3 % (0.0-3.0) H Basophils (%) (Auto) 1.3 % (0.0-2.0) Sodium Level 140 MMOL/L (136-145) Potassium Level 3.7 MMOL/L (3.5-5.1) Chloride Level 102 MMOL/L (98-107) Carbon Dioxide Level 30 MMOL/L (21-32) Anion Gap 8 mmol/L (5-15) Blood Urea Nitrogen 13 mg/dL (7-18) Creatinine 0.6 MG/DL (0.55-1.30) Estimate Glomerular Filtration Rate > 60 mL/min (>60) Glucose Level 94 MG/DL (74-106) Calcium Level 8.7 MG/DL (8.5-10.1) Total Bilirubin 0.2 MG/DL (0.2-1.0) Aspartate Amino Transferase (AST) 21 U/L (15-37) Alanine Aminotransferase (ALT) 26 U/L (12-78) Alkaline Phosphatase 78 U/L (46-116) Total Protein 8.7 G/DL (6.4-8.2) H Albumin 4.3 G/DL (3.4-5.0) Globulin 4.4 g/dL Albumin/Globulin Ratio 1.0 (1.0-2.7) Lipase 235 U/L (73-393) Carbamazepine (Tegretol) Level 8.6 ug/mL (4.0-12.0) Urine Color Pale yellow Urine Appearance Clear Urine pH 6.5 (4.5-8.0) Urine Specific Brun[place] 1.015 (1.005-1.035) Urine Protein 2+ (NEGATIVE) H Urine Glucose (UA) Negative (NEGATIVE) Urine Ketones Negative (NEGATIVE) Urine Blood 2+ (NEGATIVE) H Urine Nitrite Negative (NEGATIVE) Urine Bilirubin Negative (NEGATIVE) Urine Urobilinogen Normal MG/DL (0.0-1.0) Urine Leukocyte Esterase 3+ (NEGATIVE) H Urine RBC 5-10 /HPF (0 - 2) H Urine WBC 10-15 /HPF (0 - 2) H Urine Squamous Epithelial Cells Few /LPF (NONE/OCC) Urine Bacteria Few /HPF (NONE) Urine HCG, Qualitative Negative (NEGATIVE) EKG Diagnostic Results EKG Time: 12:23 EP Interpretation: SR, rate 88, QTc 459, no acute ST elevations, normal axis CT/MRI/US Diagnostic Results CT/MRI/US Diagnostic Results : Impression Comparison: none Findings: The size and configuration of the cortical sulci, basal cisterns, and ventricles are within normal limits for age. There is no mass effect, midline shift, or edema identified. There is no evidence of acute hemorrhage or abnormal intra- axial or extra-axial fluid collections. The bones and soft tissues are unremarkable. Impression: No mass effect, edema or acute bleed. The CT scanner at [facility] is accredited by the [employer] and the scans are performed using dose optimization techniques as appropriate to a performed exam including Automatic Exposure control. Dictated By: Jose Peters MD Electronically Signed By: Jose Peters MD Signed Date/Time 05/14/19 1337 CC: Jaylan Darden MD Procedure: CT Abdomen Pelvis WO Contrast Indication: Abdominal pain Technique: Continuous helical transaxial imaging of the abdomen and pelvis was obtained from the lung bases to the pubic symphysis. No intravenous contrast was administered. Coronal 2-D reformats were also obtained. Automatic Exposure Control was utilized. Total Dose length Product (DLP): [address] Dose Index Volume (CTDIvol): 5 mGy Comparison: 08/03/2013 Findings: The lung bases are clear. There is no nephrolithiasis or hydronephrosis. Bladder is mildly distended. Uterus is present. There are few diverticula in the colon but no evidence of diverticulitis. The appendix is normal. There is no free fluid. Small bowel hernia containing fat demonstrated. Cholecystectomy noted. IMPRESSION: No acute findings. Diverticulosis of the colon. No definite diverticulitis. Normal appendix Status post cholecystectomy The CT scanner at [facility] is accredited by the [employer] and the scans are performed using dose optimization techniques as appropriate to a performed exam including Automatic Exposure control. Dictated By: Jose Peters MD Electronically Signed By: Jose Peters MD Signed Date/Time 05/14/19 1538 CC: Jaylan Darden MD Last Vital Signs Date Time Temp Pulse Resp B/P (MAP) Pulse Ox O2 Delivery O2 Flow Rate FiO2 05/14/19 12:04 87 19 Room Air 05/14/19 12:04 98.1 130/70 98 Disposition: HOME, SELF-CARE Condition: Stable Scripts Cephalexin* (KEFLEX*) 500 Mg Tablet 500 MG ORAL EVERY 6 HOURS, #28 CAP Prov: Jaylan Darden MD 05/14/19 Levetiracetam (KEPPRA) 1,000 Mg Tablet 1000 MG ORAL BID, #60 TAB 0 Refills Prov: Jaylan Darden MD 05/14/19 Referrals: [facility] Patient Instructions: Seizure, Adult, Urinary Tract Infection, [id number] Additional Instructions: The patient was provided with discharge instructions, notified to follow-up with a primary care doctor and or specialist in the next 24-48 hours, and to return to the ED if they have worsening of their symptoms. Please note that this report is being documented using DRAGON technology. This can lead to erroneous entry secondary to incorrect interpretation by the dictating instrument. Jaylan Darden MD May 14, 2019 12:09
[2019-05-14] MEDS ORDERED: AMMONIA INHALANT INH ONE ×2 (12:11→12:15)
--- NOTE | 2019-05-14 12:11 | NUR ---
ED Nurse Note: PER ERMD, VERBAL ORDER, OVERRIDE AMMONIA
--- NOTE | 2019-05-14 12:12 | NUR ---
ED Nurse Note: PT AMBULATED TO WAITING ROOM AND HAD A SEIZURE. PT WAS ASSISTED TO RNEY AND PLACED AND SEIZURE PRECAUTIONS WERE INITATED. PT PLACED ON APPRAISAL ANALYST. PT PLACED IN GOWN, IV SITE ESTABLISED, PATENT AND INTACT. BLOOD SPECIMEN COLLECTED AND SENT TO LAB.
[2019-05-14 12:15] VITALS: BP 160/90
[2019-05-14] MEDS ORDERED: levETIRAcetam 1,000mg/NS100ml 100 ML IVPB ONE (12:30)
[2019-05-14 12:44] LABS: BASOPHILS % (AUTO) 1.3 % (0.0-2.0); EOSINOPHILS % (AUTO) 5.3 % (0.0-3.0); HEMATOCRIT 42.6 % (37.0-47.0); HEMOGLOBIN 14.7 G/DL (12.0-16.0); LYMPHOCYTES % (AUTO) 28.3 % (20.0-45.0); MEAN CORPUSCULAR VOLUME 89 FL (80-99); NEUTROPHILS % (AUTO) 60.1 % (45.0-75.0); PLATELET COUNT 324 K/UL (150-450); RED BLOOD COUNT 4.76 M/UL (4.20-5.40); RED CELL DISTRIBUTION WIDTH 11.2 % (11.6-14.8); WHITE BLOOD COUNT 8.4 K/UL (4.8-10.8)
[2019-05-14] MEDS ORDERED: Morphine Sulfate 4mg/ml Inj (IV USE ONLY) IVP ONE ×2 (12:45→14:15)
[2019-05-14] MEDS ORDERED: Acetaminophen 500mg (ES) tab ORAL ONE (12:45)
--- NOTE | 2019-05-14 12:49 | NUR ---
ED Nurse Note: ASSISTED PT ON BED GASTELUM, URINE SPECIMEN COLLECTED AND SENT TO LAB
[2019-05-14 12:50] LABS: ANION GAP 8 mmol/L (5-15); BLOOD UREA NITROGEN 13 mg/dL (7-18); CALCIUM 8.7 MG/DL (8.5-10.1); CARBON DIOXIDE 30 MMOL/L (21-32); CHLORIDE 102 MMOL/L (98-107); CREATININE 0.6 MG/DL (0.55-1.30); POTASSIUM 3.7 MMOL/L (3.5-5.1); SODIUM 140 MMOL/L (136-145)
--- NOTE | 2019-05-14 12:50 | NUR ---
ED Nurse Note: PT SENT TO CT
[2019-05-14 12:55] LABS: ALANINE AMINOTRANSFERASE 26 U/L (12-78); ALBUMIN 4.3 G/DL (3.4-5.0); ALKALINE PHOSPHATASE 78 U/L (46-116); ASPARTATE AMINO TRANSFERASE 21 U/L (15-37); BILIRUBIN,TOTAL 0.2 MG/DL (0.2-1.0)
[2019-05-14 13:00] LABS: APPEARANCE,URINE CLEAR; BILIRUBIN, URINE NEGATIVE (NEGATIVE); COLOR,URINE PALE YELLOW; GLUCOSE, URINE (UA) NEGATIVE (NEGATIVE); KETONES,URINE NEGATIVE (NEGATIVE); LEUKOCYTE ESTERASE ,URINE 3+ (NEGATIVE); NITRITE,URINE NEGATIVE (NEGATIVE); PH,URINE 6.5 (4.5-8.0); PROTEIN,URINE 2+ (NEGATIVE); UROBILINOGEN,URINE NORMAL MG/DL (0.0-1.0)
--- NOTE | 2019-05-14 13:31 | NUR ---
ED Nurse Note: PT WENT FOR ABDOMENT CT.
--- NOTE | 2019-05-14 13:42 | Diagnostic Imaging Report ---
Indication: Headache Technique: Contiguous 5 mm thick transaxial imaging of the head obtained in a Siemens Sensation [address] scanner. Soft tissue and bone windows generated. Automatic Exposure Control was utilized. Total Dose length Product (DLP): [address] Dose Index Volume (CTDIvol): 62.7 mGy Comparison: none Findings: The size and configuration of the cortical sulci, basal cisterns, and ventricles are within normal limits for age. There is no mass effect, midline shift, or edema identified. There is no evidence of acute hemorrhage or abnormal intra-axial or extra-axial fluid collections. The bones and soft tissues are unremarkable. Impression: No mass effect, edema or acute bleed. The CT scanner at [facility] is accredited by the [employer] and the scans are performed using dose optimization techniques as appropriate to a performed exam including Automatic Exposure control.
--- NOTE | 2019-05-14 13:44 | NUR ---
ED Nurse Note: PT RETURNED FROM THE CT.
[2019-05-14] MEDS: cefTRIAXone 1 GM in NS 55 ML IVPB ONE ×3 (13:53→14:26)
[2019-05-14] MEDS: DiphenhydrAMINE 50mg/ml Inj IVP ONE ×2 (14:25→14:27)
[2019-05-14 14:31] VITALS: BP 160/90
[2019-05-14] MEDS ORDERED: CEPHALEXIN500 M1 ORAL (15:15)
--- NOTE | 2019-05-14 15:44 | Diagnostic Imaging Report ---
Indication: Abdominal pain Technique: Continuous helical transaxial imaging of the abdomen and pelvis was obtained from the lung bases to the pubic symphysis. No intravenous contrast was administered. Coronal 2-D reformats were also obtained. Automatic Exposure Control was utilized. Total Dose length Product (DLP): [address] Dose Index Volume (CTDIvol): 5 mGy Comparison: 08/03/2013 Findings: The lung bases are clear. There is no nephrolithiasis or hydronephrosis. Bladder is mildly distended. Uterus is present. There are few diverticula in the colon but no evidence of diverticulitis. The appendix is normal. There is no free fluid. Small bowel hernia containing fat demonstrated. Cholecystectomy noted. IMPRESSION: No acute findings. Diverticulosis of the colon. No definite diverticulitis. Normal appendix Status post cholecystectomy The CT scanner at [facility] is accredited by the [employer] and the scans are performed using dose optimization techniques as appropriate to a performed exam including Automatic Exposure control.
[2019-05-14 16:15] VITALS: BP 155/100
--- NOTE | 2019-05-14 16:15 | NUR ---
ER DISCHARGE NOTE: Patient is cleared to be discharged per ERMD, pt is aox4, on room air, with stable vital signs. pt was given dc and prescription instructions, pt was able to verbalize understanding, pt id band and iv site removed without complications. pt is able to ambulate with steady gait. pt took all belongings. pt left all by self, ambulatory. vss.
== END 2019-05-14 16:15 | disposition home or self-care (01) ==
LOC: EDBD 12:03 → EMR 13:25
DX: G40.909 Epilepsy, unspecified, not intractable, without status epilepticus (principal); N30.01 Acute cystitis with hematuria; I10 Essential (primary) hypertension; Z90.49 Acquired absence of other specified parts of digestive tract; K57.90 Diverticulosis of intestine, part unspecified, without perforation or abscess without bleeding
CPT/HCPCS: 36415; 70450; 74176; 80053; 80156; 81003; 81025; 83690; 85025; 87086; 93005; 96365; 96375; 96376; J0696; J1200; J1953; J2270; J2405; Z7502; 99285

== ENCOUNTER 2019-05-28 10:40 | Emergency (ER) | payer OTHER ==
[~2019-05-28] VITALS: Ht 165.1 cm; Wt 77.1 kg
[~2019-05-28 10:40] MED LIST changes: +CEPHALEXIN500 M1 ORAL; -D5NS 1,000 ML IV ONE; +KEPPRA1000 MG ORAL
[2019-05-28 10:44] VITALS: BP 167/121
--- NOTE | 2019-05-28 10:44 | NUR ---
ED Nurse Note: Patient came into the ER via ambulance by RA 68 and she was reported of having a seizure when she was at work, coworkers assisted her to the ground. No signs of trauma. Seizure lasted 60 sec. Patient states that she has a persistent headache for a week. Patient states a pain score of 10/10. Placed patient in gown and on the diagnostic cardiac sonographer.
--- NOTE | 2019-05-28 10:57 | Emergency Room Report ---
History of Present Illness General Chief Complaint: Seizure Source: Patient, EMS Present Illness HPI Patient presents after having a seizure at work. This was witnessed. She has recurrent seizures. In the past she has had subtherapeutic anticonvulsant levels. She claims she is taking all of her pills as ordered. She has been complaining about right-sided headache for the last week. She has been taking Motrin and Tylenol without relief. She believes it might be coming from her neck as she seems to have noises when she moves her neck about. She denies any fevers or chills. There is some dysuria. The patient takes Keppra and carbamazepine. She denies any trauma or pain from the seizure itself. She did not but bite her tongue. There was no incontinence. Patient was transported by paramedics. Accu-Chek was normal in the field. She rates the headache pain at 10/10, aching right-sided and coming from her neck. This is consistent with the pain she was feeling before the seizure. In the past when she presents post seizure she has headaches. In the past there is been difficulty with analgesia administration addition. No sore throat, chest pain, palpitations, nausea, vomiting, diarrhea, abdominal pain, shortness of breath, rashes, depression, anxiety, visual changes, dizziness. She alleges allergy to Ativan. History of hypertension. Allergies: Coded Allergies: IODINE (Verified Allergy, Unknown, 04/16/19) KETOROLAC (Verified Allergy, Unknown, 04/16/19) LORAZEPAM (Unverified Allergy, Unknown, 03/12/19) Patient History Past Medical History: see triage record Social History: Denies: smoking, alcohol use, drug use Social History Narrative Works at [employer] Reviewed Nursing Documentation: PMH: Agreed; PSxH: Agreed Nursing Documentation-PMH Hx Hypertension: Yes Hx Gastrointestinal Problems: Yes - cholecystectomy Hx Seizures: Yes Review of Systems All Other Systems: negative except mentioned in HPI Physical Exam Vital Signs Date Time Temp Pulse Resp B/P (MAP) Pulse Ox O2 Delivery O2 Flow Rate FiO2 05/28/19 10:33 98.8 96 16 173/116 (135) 98 Room Air Sp02 EP Interpretation: reviewed, normal General Appearance: well appearing, no apparent distress, GCS 15 Head: normocephalic, atraumatic Eyes: bilateral eye normal inspection, bilateral eye PERRL, bilateral eye EOMI ENT: moist mucus membranes - No lingual macerations Neck: full range of motion, supple, no bony tend, tender - Right muscle masses Respiratory: chest non-tender, lungs clear, normal breath sounds Cardiovascular #1: regular rate, rhythm Cardiovascular #2: 2+ radial (R) Gastrointestinal: normal inspection, normal bowel sounds, non tender, no mass, non-distended Musculoskeletal: back normal, normal range of motion, gait/station normal Neurologic: alert, motor strength/tone normal, residential driver III-XII nml as tested, DTRs symmetric, oriented x3, sensory intact, cerebellar normal, speech normal Psychiatric: depressed affect Skin: no rash, warm/dry Medical Decision Making Diagnostic Impression: Primary Impression: Seizure Additional Impressions: Cervical radicular pain Hypertension Qualified Codes: I10 - Essential (primary) hypertension ER Course Patient presents post seizure. Differential includes electrolyte and balance, medical noncompliance, breakthrough seizure amongst others. Evaluation with EKG , chest x-ray and labs. The patient will be treated with a dose of phenobarbital and also treated for pain. She will receive IV hydration. The patient is placed on a monitoring analyst. CT of the head is not indicated based on history and physical exam. EKG no injury. Chest x-ray no infiltrates. Labs with normal carbamazepine level and otherwise unremarkable. Potassium minimally low. No evidence of urinary tract infection. Patient improved with treatment. Discussed results with patient. Also discussed the possibility of preventing seizures by taking a dose of phenobarbital before going to work. The patient has an appointment with her doctor this afternoon. Patient stable for outpatient observation and treatment. Laboratory Tests Test 05/28/19 11:45 05/28/19 11:55 Sodium Level 138 MMOL/L (136-145) Potassium Level 3.1 MMOL/L (3.5-5.1) L Chloride Level 97 MMOL/L (98-107) L Carbon Dioxide Level 31 MMOL/L (21-32) Anion Gap 10 mmol/L (5-15) Blood Urea Nitrogen 12 mg/dL (7-18) Creatinine 0.7 MG/DL (0.55-1.30) Estimate Glomerular Filtration Rate > 60 mL/min (>60) Glucose Level 99 MG/DL (74-106) Calcium Level 9.1 MG/DL (8.5-10.1) Total Bilirubin 0.3 MG/DL (0.2-1.0) Aspartate Amino Transferase (AST) 26 U/L (15-37) Alanine Aminotransferase (ALT) 27 U/L (12-78) Alkaline Phosphatase 83 U/L (46-116) Total Creatine Kinase 135 U/L (26-308) Troponin I 0.000 ng/mL (0.000-0.056) Total Protein 9.0 G/DL (6.4-8.2) H Albumin 4.4 G/DL (3.4-5.0) Globulin 4.6 g/dL Albumin/Globulin Ratio 1.0 (1.0-2.7) Carbamazepine (Tegretol) Level 9.0 ug/mL (4.0-12.0) Urine Color Pale yellow Urine Appearance Clear Urine pH 6 (4.5-8.0) Urine Specific [place] 1.010 (1.005-1.035) Urine Protein 1+ (NEGATIVE) H Urine Glucose (UA) Negative (NEGATIVE) Urine Ketones Negative (NEGATIVE) Urine Blood 2+ (NEGATIVE) H Urine Nitrite Negative (NEGATIVE) Urine Bilirubin Negative (NEGATIVE) Urine Urobilinogen Normal MG/DL (0.0-1.0) Urine Leukocyte Esterase 2+ (NEGATIVE) H Urine RBC 10-15 /HPF (0 - 2) H Urine WBC 2-4 /HPF (0 - 2) Urine Squamous Epithelial Cells Occasional /LPF Urine Bacteria Occasional /HPF (NONE) Urine HCG, Qualitative Negative (NEGATIVE) Urine Opiates Screen Negative (NEGATIVE) Urine Barbiturates Screen Negative (NEGATIVE) Phencyclidine (PCP) Screen Negative (NEGATIVE) Urine Amphetamines Screen Negative (NEGATIVE) Urine Benzodiazepines Screen Negative (NEGATIVE) Urine Cocaine Screen Negative (NEGATIVE) Urine Marijuana (THC) Screen Negative (NEGATIVE) EKG Diagnostic Results Rate: normal Rhythm: NSR ST Segments: no acute changes Rhythm Strip Diag. Results EP Interpretation: yes Rhythm: NSR, no PVC's, no ectopy Chest X-Ray Diagnostic Results Chest X-Ray Diagnostic Results : Chest X-Ray Ordered: Yes # of Views/Limited/Complete: 1 View Indication: Other EP Interpretation: Yes Interpretation: no consolidation, no effusion, no pneumothorax Impression: No acute disease Electronically Signed by: Electronically signed by Donny Farrell MD Last Vital Signs Date Time Temp Pulse Resp B/P (MAP) Pulse Ox O2 Delivery O2 Flow Rate FiO2 05/28/19 14:15 97.0 93 15 156/119 100 Room Air Status: improved Disposition: HOME, SELF-CARE Condition: Improved Scripts Hydrocodone Bit/Acetaminophen 5-325* (NORCO 5-325*) 1 Each Tablet 1 TAB ORAL Q6H PRN for For Pain, #8 TAB 0 Refills Prov: Donny Farrell MD 05/28/19 Donny Farrell MD May 28, 2019 10:57
[2019-05-28] MEDS ORDERED: Morphine Sulfate 4mg/ml Inj (IV USE ONLY) IVP ONE (11:00)
--- NOTE | 2019-05-28 11:45 | Diagnostic Imaging Report ---
Indication: Shortness of breath Technique: One view of the chest Comparison: 04/16/2019 Findings: Lungs and pleural spaces are clear. Heart size is upper limits normal. No significant interim change Impression: No acute process
[2019-05-28 12:00] VITALS: BP 152/100
--- NOTE | 2019-05-28 12:03 | NUR ---
ED Nurse Note: pt with iv start and labs drawn and sent. pt assisted to brp with rn via wheelchair to observe for safety prior to meds given. urine sample sent. pt remains a/ox4 without seizure activity while in ed. pt tolerate well.
[2019-05-28 12:18] LABS: APPEARANCE,URINE CLEAR; BILIRUBIN, URINE NEGATIVE (NEGATIVE); COLOR,URINE PALE YELLOW; GLUCOSE, URINE (UA) NEGATIVE (NEGATIVE); KETONES,URINE NEGATIVE (NEGATIVE); LEUKOCYTE ESTERASE ,URINE 2+ (NEGATIVE); NITRITE,URINE NEGATIVE (NEGATIVE); PH,URINE 6 (4.5-8.0); PROTEIN,URINE 1+ (NEGATIVE); UROBILINOGEN,URINE NORMAL MG/DL (0.0-1.0)
[2019-05-28 12:21] LABS: ANION GAP 10 mmol/L (5-15); BLOOD UREA NITROGEN 12 mg/dL (7-18); CALCIUM 9.1 MG/DL (8.5-10.1); CARBON DIOXIDE 31 MMOL/L (21-32); CHLORIDE 97 MMOL/L (98-107); CREATININE 0.7 MG/DL (0.55-1.30); POTASSIUM 3.1 MMOL/L (3.5-5.1); SODIUM 138 MMOL/L (136-145)
[2019-05-28 12:28] LABS: ALANINE AMINOTRANSFERASE 27 U/L (12-78); ALBUMIN 4.4 G/DL (3.4-5.0); ALKALINE PHOSPHATASE 83 U/L (46-116); ASPARTATE AMINO TRANSFERASE 26 U/L (15-37); BILIRUBIN,TOTAL 0.3 MG/DL (0.2-1.0); CREATINE KINASE 135 U/L (26-308)
[2019-05-28 13:06] VITALS: BP 195/100
--- NOTE | 2019-05-28 13:26 | NUR ---
ED Nurse Note: md reeval of pt.
[2019-05-28] MEDS ORDERED: NORCO 5-325 TA1 EACH ORAL (14:02)
[2019-05-28 14:15] VITALS: BP 156/119
--- NOTE | 2019-05-28 14:15 | NUR ---
ER DISCHARGE NOTE: Patient is cleared to be discharged per ERMD Dr. Farrell, pt is aox4, on room air, with elevated BP 156/119 asymptomatic no s/s of dizziness, or n/v advised pt to take her BP meds when she gets home. pt was given dc and prescription instructions, pt was able to verbalize understanding, pt id band and iv site removed without complications. pt is able to ambulate with steady gait. pt took all belongings.
--- NOTE | 2019-06-01 15:53 | Cardiology Report ---
APPROVED REPORT EKG Measurement Heart [id number] Normal sinus rhythm Normal ECG
== END 2019-05-28 14:15 | disposition home or self-care (01) ==
LOC: EDBD 10:40 → EMR 11:13
DX: G40.909 Epilepsy, unspecified, not intractable, without status epilepticus (principal); M54.12 Radiculopathy, cervical region; I10 Essential (primary) hypertension; Z90.49 Acquired absence of other specified parts of digestive tract; Z88.8 Allergy status to other drugs, medicaments and biological substances
CPT/HCPCS: 36415; 71045; 80053; 80156; 80307; 81003; 81025; 82550; 82962; 84484; 93005; 96361; 96374; 96375; J2270; J2560; J7030; Z7502; 99284

== ENCOUNTER 2019-06-06 13:10 | Emergency (ER) | payer MEDICAID, OTHER ==
[~2019-06-06] VITALS: Ht 154.9 cm; Wt 81.2 kg
[2019-06-06 13:10] VITALS: BP 110/71
--- NOTE | 2019-06-06 13:10 | NUR ---
ED Nurse Note: Pt brought in by ARLEEN RA 62 for c/o seizure onset at 1200 today. Per pt, she was at work and had 4 seziures. Per [facility], pt had one seizure en route which was witnessed by them. Pt states she has hx of seizures and is compliant with her medications. Pt has no head injury or oral trauma. Pt is aaox4, breathing is normal and unlabored, no cardiac distress noted. Pt does c/o headache that is 10/10 pain and sharp in nature. Pt connected to monitoring tech and placed in gown. Seizure and safety measures in place. Will continue to monitor.
--- NOTE | 2019-06-06 13:20 | NUR ---
ED Nurse Note: ERMD at bedside. Pt also c/o wisdom tooth pain. ERMD states he will prescribe antibiotic.
[2019-06-06] MEDS ORDERED: NORCO 5-325 TA1 EACH ORAL (13:25)
[2019-06-06] MEDS ORDERED: AMOXICILLIN500 MG ORAL (13:27)
[2019-06-06] MEDS ORDERED: PERIDEX15 ML MM (13:27)
[2019-06-06] MEDS ORDERED: HYDROcodone/Acetamin 5/325 tab ORAL ONE (13:30)
--- NOTE | 2019-06-06 13:49 | Emergency Room Report ---
History of Present Illness General Chief Complaint: Seizure Source: Patient, EMS Present Illness HPI Patient has history of recurrent seizures with extensive work-up in the past. Patient apparently had a seizure at work today and came here for further evaluation. Patient states that she has a headache. This is fairly typical for her usually after a seizure. She usually require some pain medications. Patient states that she takes Keppra and carbamazepine and she is compliant with her medications. She is following up outpatient. She denies any fever nausea vomiting diarrhea chills. She also states that she has some dental pain on her right upper back molar. She states the pain seems to aggravate her and cause seizures. No other complaints were noted. She is supposed to see a dentist in the couple days. No other modifying factors. No other associated signs and symptoms. No other complaints were noted. Allergies: Coded Allergies: IODINE (Verified Allergy, Unknown, 04/16/19) KETOROLAC (Verified Allergy, Unknown, 04/16/19) LORAZEPAM (Unverified Allergy, Unknown, 03/12/19) UNABLE TO ASSESS (Unverified , 06/06/19) Patient History Past Medical History: seizures Past Surgical History: none Pertinent Family History: none Social History: Denies: smoking, alcohol use, drug use Reviewed Nursing Documentation: PMH: Agreed; PSxH: Agreed Nursing Documentation-PMH Hx Hypertension: Yes Hx Gastrointestinal Problems: Yes - cholecystectomy Hx Seizures: Yes Review of Systems All Other Systems: negative except mentioned in HPI Physical Exam Vital Signs Date Time Temp Pulse Resp B/P (MAP) Pulse Ox O2 Delivery O2 Flow Rate FiO2 06/06/19 12:59 98.4 85 14 110/71 (84) 97 Room Air Sp02 EP Interpretation: reviewed, normal General Appearance: normal inspection, well appearing, no apparent distress, alert Head: atraumatic Eyes: bilateral eye normal inspection ENT: normal ENT inspection, hearing grossly normal, normal voice, other - Right upper molar dental caries Neck: normal inspection, full range of motion, supple, no bony tend Respiratory: normal inspection, lungs clear, normal breath sounds, no respiratory distress, no retraction, no wheezing Cardiovascular #1: regular rate, rhythm, no edema Gastrointestinal: normal inspection, normal bowel sounds, non tender, soft, no guarding, no hernia Genitourinary: no CVA tenderness Musculoskeletal: normal inspection, back normal, normal range of motion Neurologic: alert, responsive, speech normal, normal inspection Psychiatric: normal inspection, judgement/insight normal, mood/affect normal Skin: no rash Medical Decision Making Diagnostic Impression: Primary Impression: Dental caries Additional Impression: Epileptic seizure, generalized ER Course Patient presents in emergency department today complaint dental pain and seizures. Differential considerations include electrolyte abnormality, recurrent seizure, subtherapeutic medication level, breakthrough seizures, dental abscess just to name a few. Patient is her exam is fairly benign but given complaints of dental pain I felt that it was reasonable to give patient amoxicillin [place] and Peridex rinse. Patient is advised to follow-up with dentistry and has an appointment. In addition patient has multiple episodes of seizures. She is back to baseline. I recommended follow-up with primary care physician and neurologist for work-up of her seizures and further treatment. Given the patient has had extensive work-up in the past and back to baseline there is no need for further work-up at this time. Patient is advised to follow up with primary doctor in 2-3 days and return the emergency room for any worsening symptoms and as needed. Last Vital Signs Date Time Temp Pulse Resp B/P (MAP) Pulse Ox O2 Delivery O2 Flow Rate FiO2 06/06/19 12:59 98.4 85 14 110/71 (84) 97 Room Air Status: improved Disposition: HOME, SELF-CARE Condition: Stable Scripts Chlorhexidine Gluconate (Peridex) 15 Ml Mouthwash 15 ML MM BID for 14 Days, ML Prov: Elio Perales MD 06/06/19 Amoxicillin* (AMOXIL*) 500 Mg Capsule 500 MG ORAL THREE TIMES A DAY, #21 CAP Prov: Elio Perales MD 06/06/19 Hydrocodone Bit/Acetaminophen 5-325* (NORCO 5-325*) 1 Each Tablet 1 TAB ORAL Q6H PRN for For Pain, #20 TAB 0 Refills Prov: Elio Perales MD 06/06/19 Patient Instructions: Seizure, Adult Elio Perales MD Jun 06, 2019 13:49
[2019-06-06 13:55] VITALS: BP 106/71
--- NOTE | 2019-06-06 13:55 | NUR ---
ER DISCHARGE NOTE: Patient is cleared to be discharged per ERMD, pt is aox4, on room air, with stable vital signs. pt was given dc and prescription instructions, pt was able to verbalize understanding, pt id band removed. pt is able to ambulate with steady gait. pt took all belongings.
== END 2019-06-06 13:55 | disposition home or self-care (01) ==
LOC: EDBD 13:10 → EMR 13:40
DX: K02.9 Dental caries, unspecified (principal); G40.909 Epilepsy, unspecified, not intractable, without status epilepticus; Z88.8 Allergy status to other drugs, medicaments and biological substances; Z90.49 Acquired absence of other specified parts of digestive tract; I10 Essential (primary) hypertension
CPT/HCPCS: 99282

== ENCOUNTER 2019-07-02 09:31 | Emergency (ER) | payer MEDICAID ==
[~2019-07-02] VITALS: Ht 154.9 cm; Wt 81.2 kg
[~2019-07-02 09:31] MED LIST changes: +AMOXICILLIN500 MG ORAL; +PERIDEX15 ML MM
[2019-07-02 09:33] VITALS: BP 134/90
--- NOTE | 2019-07-02 09:33 | NUR ---
ED Nurse Note: Patient arrived by EMS from work. She called 911 d/t 03/29 headache that started 3 days ago. Patient states she has had n/v the last 3 days. Vomited once this AM, emesis was food she ate. Patient currently feels nauseated. Patient AxO x 4, VSS, on the quality assurance monitor body. Bed in lowest position. Urine collected and sent to lab.
--- NOTE | 2019-07-02 09:56 | NUR ---
ED Nurse Note: Patient eloped after speaking with ERMD.
--- NOTE | 2019-07-02 10:38 | Emergency Room Report ---
History of Present Illness General Chief Complaint: Nausea Source: Patient Present Illness HPI 39-year-old female presents ED for evaluation. Brought in by EMS from work. Complaining of headache. States she has had pain to the back side of her head for the last 3 weeks. States she had a mechanical fall at work. Was seen in another emergency room and had a CT which was negative. Was told that she had a concussion. States she is having persistent pain to the back of her head. Dull, 8 out of 10, nonradiating. Denies neck pain or neck stiffness. Denies photophobia or blurry vision. Notes nausea denies vomiting. No other aggravating relieving factors. Denies any other associated symptoms Allergies: Coded Allergies: IODINE (Verified Allergy, Unknown, 04/16/19) KETOROLAC (Verified Allergy, Unknown, 04/16/19) LORAZEPAM (Unverified Allergy, Unknown, 03/12/19) Patient History Past Medical History: HTN Past Surgical History: none Pertinent Family History: none Social History: Denies: smoking, alcohol use, drug use Now: No Immunizations: UTD Reviewed Nursing Documentation: PMH: Agreed; PSxH: Agreed Nursing Documentation-PMH Past Medical History: No History, Except For Hx Cardiac Problems: Yes Hx Hypertension: Yes Hx Pacemaker: No Hx Asthma: No Hx COPD: No Hx Diabetes: No Hx Cancer: No Hx Gastrointestinal Problems: No Hx Dialysis: No Hx Neurological Problems: No Hx Cerebrovascular Accident: No Hx Seizures: Yes Review of Systems All Other Systems: negative except mentioned in HPI Physical Exam Vital Signs Date Time Temp Pulse Resp B/P (MAP) Pulse Ox O2 Delivery O2 Flow Rate FiO2 07/02/19 09:32 98.2 86 20 134/90 (105) 98 Room Air Sp02 EP Interpretation: reviewed, normal General Appearance: no apparent distress, alert, GCS 15, non-toxic Head: normocephalic, other - posterior scalp TTP Eyes: bilateral eye normal inspection, bilateral eye PERRL ENT: hearing grossly normal, normal pharynx, no angioedema, normal voice Neck: full range of motion, supple/symm/no masses Respiratory: chest non-tender, lungs clear, normal breath sounds, speaking full sentences Cardiovascular #1: regular rate, rhythm, no edema Cardiovascular #2: 2+ carotid (R), 2+ carotid (L), 2+ radial (R), 2+ radial (L) , 2+ dorsalis pedis (R), 2+ dorsalis pedis (L) Gastrointestinal: normal bowel sounds, non tender, soft, non-distended, no guarding, no rebound Rectal: deferred Genitourinary: normal inspection, no CVA tenderness Musculoskeletal: back normal, normal range of motion, gait/station normal, non- tender Neurologic: alert, motor strength/tone normal, oriented x3, sensory intact, responsive, speech normal Psychiatric: judgement/insight normal, memory normal, mood/affect normal, no suicidal/homicidal ideation Reflexes: 3+ bicep (R), 3+ bicep (L), 3+ tricep (R), 3+ tricep (L), 3+ knee (R) , 3+ knee (L) Skin: no rash Lymphatic: no adenopathy Medical Decision Making Diagnostic Impression: Primary Impression: Post concussive syndrome ER Course Hospital Course 39 yo F presents with posterior head pain s/p fall x 3 weeks Differential diagnoses include: cspine injury, muscle strain, nasal bone Fx, concussion Clinical course Patient placed on stretcher. After initial history, my physical exam reveals a female in no acute distress. There is tenderness on the posterior scalp. No crepitus or deformity. No neck pain. No nuchal rigidity. Cranial nerves II through XII intact. No focal deficits. Patient ambulating in ED without difficulty. Answering questions appropriately. Findings with patient. Was seen at another ED [address] was negative. We discussed option of repeat CT but patient declined. I offered to provide pain meds, nausea meds here but patient declined. I explained that postconcussive syndrome can persist for several weeks. Patient would benefit from neurology evaluation. Has history of seizures but states she has a neurologist. Patient became anxious and got up and started changing and walked out of the ED before she could receive disposition planning Diagnosis - postconcussive syndrome patient eloped from ED Last Vital Signs Date Time Temp Pulse Resp B/P (MAP) Pulse Ox O2 Delivery O2 Flow Rate FiO2 07/02/19 09:56 98.2 20 98 Room Air 07/02/19 09:33 134/90 07/02/19 09:32 86 Status: improved Disposition: ELOPED Condition: Stable Referrals: [facility] (PCP) Carlton Jama MD Jul 02, 2019 10:38
[2019-07-02] MEDS ORDERED: ONDANSETRON ODT4 MG BC (10:59)
[2019-07-02] MEDS ORDERED: TYLENOL EXTRA500 MG ORAL (10:59)
== END 2019-07-02 09:56 | disposition left against medical advice (07) ==
LOC: EDBD 09:31 → EMR 09:55
DX: F07.81 Postconcussional syndrome (principal); W19.XXXA Unspecified fall, initial encounter; Y92.9 Unspecified place or not applicable; Y99.0 Civilian activity done for income or pay; Z88.8 Allergy status to other drugs, medicaments and biological substances; I10 Essential (primary) hypertension; G40.909 Epilepsy, unspecified, not intractable, without status epilepticus
CPT/HCPCS: 99282

== ENCOUNTER 2019-07-02 10:12 | Emergency (ER) | payer MEDICAID ==
[~2019-07-02] VITALS: Ht 154.9 cm; Wt 63.0 kg
--- NOTE | 2019-07-02 10:21 | NUR ---
ED Nurse Note: Pt ambulated to ED with c/o feeling nauseous started this morning. pt is AOx4, VSS, no signs of acute distress as of now.
[2019-07-02 10:24] VITALS: BP 145/97
[2019-07-02] MEDS ORDERED: Acetaminophen 500mg (ES) tab ORAL ONE (10:30)
[2019-07-02] MEDS ORDERED: ONDANSETRON ODT4 MG BC (10:59)
[2019-07-02] MEDS ORDERED: TYLENOL EXTRA500 MG ORAL (10:59)
[2019-07-02 11:04] VITALS: BP 142/88
--- NOTE | 2019-07-02 11:04 | NUR ---
ER DISCHARGE NOTE: Pt is cleared to be discharge per ERMD,. Pt is AOx4, on RA, VSS. pt was given dc and prescription instructions, pt was able to verbalize understanding, pt id band removed. pt is able to ambulate with steady gait. Pt left ER with all belongings.
--- NOTE | 2019-07-02 11:17 | Emergency Room Report ---
History of Present Illness General Chief Complaint: Nausea Source: Patient Present Illness HPI 39-year-old female presents ED for evaluation. Complaining of headache and nausea and vomiting. Patient eloped from ED and while walking down the street felt nauseous and threw up once. So she came back to ED for evaluation. Patient was here previously for headache from work. Status post fall with head injury 3 weeks ago. Patient declined all treatment and left prior to receiving discharge papers. There is dull, 6 5 out of 10, nonradiating. Denies photophobia or blurry vision. Denies nausea or vomiting. No other aggravating relieving factors. Denies any other associated symptoms Allergies: Coded Allergies: IODINE (Verified Allergy, Unknown, 04/16/19) KETOROLAC (Verified Allergy, Unknown, 04/16/19) LORAZEPAM (Unverified Allergy, Unknown, 03/12/19) Patient History Past Medical History: HTN, seizures, migraines Past Surgical History: none Pertinent Family History: none Social History: Denies: smoking, alcohol use, drug use Now: No Immunizations: UTD Reviewed Nursing Documentation: PMH: Agreed; PSxH: Agreed Nursing Documentation-PMH Hx Cardiac Problems: Yes Hx Hypertension: Yes Hx Pacemaker: No Hx Asthma: No Hx COPD: No Hx Diabetes: No Hx Cancer: No Hx Gastrointestinal Problems: No Hx Dialysis: No Hx Neurological Problems: No Hx Cerebrovascular Accident: No Hx Seizures: Yes Review of Systems All Other Systems: negative except mentioned in HPI Physical Exam Vital Signs Date Time Temp Pulse Resp B/P (MAP) Pulse Ox O2 Delivery O2 Flow Rate FiO2 07/02/19 10:17 98.1 96 18 145/97 (113) 99 Room Air Sp02 EP Interpretation: reviewed, normal General Appearance: no apparent distress, alert, GCS 15, non-toxic Head: normocephalic, other - posterior scalp TTP Eyes: bilateral eye normal inspection, bilateral eye PERRL, bilateral eye EOMI ENT: normal ENT inspection Neck: normal inspection Respiratory: normal inspection Cardiovascular #1: normal inspection Gastrointestinal: normal inspection Rectal: deferred Genitourinary: no CVA tenderness Musculoskeletal: normal inspection Neurologic: alert, motor strength/tone normal, oriented x3, sensory intact, responsive, speech normal Psychiatric: anxious Skin: no rash Lymphatic: normal inspection Medical Decision Making Diagnostic Impression: Primary Impression: Post concussive syndrome ER Course Hospital Course 39-year-old female presents with vomiting and headache. Status post head injury 3 weeks ago. Patient eloped from ED just prior to this visit Differential diagnoses include: cspine injury, muscle strain, nasal bone Fx, concussion Clinical course Patient placed on stretcher. After initial history, my physical exam reveals a acute distress. There is palpable tenderness to the scalp. No crepitus. No focal deficits. No nuchal rigidity or cervical pain. On previous ED visit I did clear the patient. I do not believe patient required further work-up. However patient all medications. Eloped prior to receiving discharge papers. patient agreed to receive medication now. Given ODT Zofran and Tylenol. Safe for discharge with close outpatient follow-up. I will provide referrals Diagnosis - postconcussive syndrome Stable and discharged to home with Rx tylenol, zofran. Followup with PMD. Return to ED if symptoms recur or worsen Last Vital Signs Date Time Temp Pulse Resp B/P (MAP) Pulse Ox O2 Delivery O2 Flow Rate FiO2 07/02/19 11:04 98.1 70 20 142/88 100 Room Air Status: improved Disposition: HOME, SELF-CARE Condition: Stable Scripts Ondansetron Odt* (ZOFRAN ODT*) 4 Mg Tab.rapdis 4 MG BC EVERY 6 HOURS PRN for Nausea & Vomiting, #10 TAB 0 Refills Prov: Carlton Jama MD 07/02/19 Acetaminophen* (TYLENOL EXTRA STRENGTH*) 500 Mg Tablet 500 MG ORAL Q8H PRN for Prn Headache/Temp > 101, #30 TAB 0 Refills Prov: Carlton Jama MD 07/02/19 Referrals: [facility] [place],[facility] (PCP) Anj[facility] Patient Instructions: Post-Concussion Syndrome, [id number] Carlton Jama MD Jul 02, 2019 11:17
== END 2019-07-02 11:04 | disposition home or self-care (01) ==
LOC: EMR 10:33
DX: F07.81 Postconcussional syndrome (principal); Z88.8 Allergy status to other drugs, medicaments and biological substances; Z91.041 Radiographic dye allergy status; I10 Essential (primary) hypertension; G40.909 Epilepsy, unspecified, not intractable, without status epilepticus
CPT/HCPCS: 99282

== ENCOUNTER 2019-07-06 11:12 | Emergency (ER) | payer MEDICAID ==
[~2019-07-06] VITALS: Ht 160 cm; Wt 99.8 kg
[~2019-07-06 11:12] MED LIST changes: +TYLENOL EXTRA500 MG ORAL
--- NOTE | 2019-07-06 11:20 | NUR ---
ED Nurse Note:pt. was GEOVANNI from her work with c/o possible unwitnessed seizure, VSS, ambulatory, A/Ox4
--- NOTE | 2019-07-06 11:24 | NUR ---
ED Nurse Note:pt. eloped from ER before seen by ER MD
[2019-07-06 11:30] VITALS: BP 140/80
[2019-07-06 11:34] VITALS: BP 140/80
--- NOTE | 2019-07-06 18:19 | Emergency Room Report ---
History of Present Illness General Chief Complaint: General Complaint Source: Patient Present Illness Allergies: Coded Allergies: IODINE (Verified Allergy, Unknown, 04/16/19) KETOROLAC (Verified Allergy, Unknown, 04/16/19) LORAZEPAM (Unverified Allergy, Unknown, 03/12/19) Patient History Now: No Nursing Documentation-[facility] Past Medical History: No History, Except For Hx Cardiac Problems: Yes Hx Hypertension: Yes Hx Pacemaker: No Hx Asthma: No Hx COPD: No Hx Diabetes: No Hx Cancer: No Hx Gastrointestinal Problems: No Hx Dialysis: No Hx Neurological Problems: No Hx Cerebrovascular Accident: No Hx Seizures: Yes Physical Exam Vital Signs Date Time Temp Pulse Resp B/P (MAP) Pulse Ox O2 Delivery O2 Flow Rate FiO2 07/06/19 11:05 99.0 76 16 140/80 (100) 98 Room Air Medical Decision Making Diagnostic Impression: Primary Impression: SEIZURE ER Course Patient left prior to MD evaluation Last Vital Signs Date Time Temp Pulse Resp B/P (MAP) Pulse Ox O2 Delivery O2 Flow Rate FiO2 07/06/19 11:34 99.0 76 16 140/80 98 Room Air Status: improved Disposition: LEFT W/OUT BEING SEEN Condition: Stable Referrals: [facility] [place],[facility] (PCP) Carlton Jama MD Jul 06, 2019 18:19
== END 2019-07-06 11:35 | disposition left against medical advice (07) ==
LOC: EDBD 11:12 → EMR 11:30
DX: G40.909 Epilepsy, unspecified, not intractable, without status epilepticus (principal); I51.9 Heart disease, unspecified; I10 Essential (primary) hypertension; Z88.8 Allergy status to other drugs, medicaments and biological substances; Z53.21 Procedure and treatment not carried out due to patient leaving prior to being seen by health care provider

== ENCOUNTER 2019-07-27 11:57 | Emergency (ER) | payer MEDICAID ==
[~2019-07-27] VITALS: Ht 154.9 cm; Wt 81.2 kg
--- NOTE | 2019-07-27 12:06 | NUR ---
ED Nurse Note: Patient BIBEtat from work ([employer]) d/t having a seizure at work. Seizure was witnessed by employees, who helped her to the ground. States seizure lasted about 1 min, generalized tonic/clonic. Patient AxO x 4, post-ictal, awake but tired. Patient on the quality assurance monitor final, no s/s of acute distress. Bed in lowest position.
[2019-07-27 12:09] VITALS: BP 138/74
[2019-07-27] MEDS ORDERED: levETIRAcetam 1,000mg/NS100ml 100 ML IVPB ONE (12:15)
--- NOTE | 2019-07-27 12:19 | Emergency Room Report ---
History of Present Illness General Chief Complaint: Seizure Source: Patient, EMS Present Illness HPI Patient is a 39-year-old female past medical history of seizure disorder on Keppra states she is compliant with her medications and hypertension who presents to the ER by EMS status post seizure. 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 She does not know if she hit her head but she complains of a headache. Patient states that she was very stressed out and believes that that is why she had a seizure today. She denies any fever or chills. She denies any chest pain or shortness of breath. She denies any blurry vision. Allergies: Coded Allergies: IODINE (Verified Allergy, Unknown, 04/16/19) KETOROLAC (Verified Allergy, Unknown, 04/16/19) LORAZEPAM (Unverified Allergy, Unknown, 03/12/19) Patient History Past Medical History: HTN, seizures Past Surgical History: kathleen, Social History: Denies: smoking, alcohol use, drug use Last Menstrual Period: 08/2017- hystrectomy Nursing Documentation-[facility] Past Medical History: No History, Except For Hx Cardiac Problems: Yes Hx Hypertension: Yes Hx Pacemaker: No Hx Asthma: No Hx COPD: No Hx Diabetes: No Hx Cancer: No Hx Gastrointestinal Problems: No Hx Dialysis: No Hx Neurological Problems: No Hx Cerebrovascular Accident: No Hx Seizures: Yes Review of Systems All Other Systems: negative except mentioned in HPI Physical Exam Vital Signs Date Time Temp Pulse Resp B/P (MAP) Pulse Ox O2 Delivery O2 Flow Rate FiO2 07/27/19 12:02 97.9 74 16 138/74 (95) 99 Room Air Sp02 EP Interpretation: reviewed, normal General Appearance: no apparent distress, alert, GCS 15, non-toxic Head: normocephalic, atraumatic, other - R occipital ttp, no hematoma Eyes: bilateral eye normal inspection, bilateral eye PERRL ENT: hearing grossly normal, normal pharynx, no angioedema, normal voice Neck: full range of motion, supple/symm/no masses Respiratory: chest non-tender, lungs clear, normal breath sounds, speaking full sentences Cardiovascular #1: regular rate, rhythm, no edema Gastrointestinal: normal bowel sounds, non tender, soft, non-distended, no guarding, no rebound Rectal: deferred Genitourinary: normal inspection, no CVA tenderness Musculoskeletal: back normal, normal range of motion, calf tenderness, gait/ station normal, non-tender Neurologic: alert, motor strength/tone normal, oriented x3, sensory intact, responsive, speech normal Psychiatric: judgement/insight normal, memory normal, mood/affect normal, no suicidal/homicidal ideation Skin: no rash, warm/dry Lymphatic: no adenopathy Medical Decision Making Diagnostic Impression: Primary Impression: Seizure disorder ER Course The patient is of adult age and has sound mind with no evidence of altered mental status suggesting metabolic or infections etiologies. I explained in layman's terms the risk of leaving against medical advise including and significant comorbidity. The patient was given reasonable options . This was explained in front of the patient and the bedside nurse RN. The AMA for was signed and witnessed by a nurse and patient. Last Vital Signs Date Time Temp Pulse Resp B/P (MAP) Pulse Ox O2 Delivery O2 Flow Rate FiO2 07/27/19 12:09 97.9 89 16 138/74 99 Room Air Disposition: AGAINST MEDICAL ADVICE Condition: Unknown Additional Instructions: The patient is of adult age and has sound mind with no evidence of altered mental status suggesting metabolic or infections etiologies. I explained in layman's terms the risk of leaving against medical advise including and significant comorbidity. The patient was given reasonable options . This was explained in front of the patient and the bedside nurse RN. The AMA for was signed and witnessed by a nurse and patient. Rebekah Forman M.D. Jul 27, 2019 12:19
--- NOTE | 2019-07-27 12:27 | NUR ---
ED Nurse Note: Patient taken to CT scan.
[2019-07-27 12:50] VITALS: BP 138/74
--- NOTE | 2019-07-27 12:50 | NUR ---
ED Nurse Note: Patient left AMA. Risks and benefits of leaving explained x [address] Majano, patient verbalized understanding.
[2019-07-27 13:07] LABS: APPEARANCE,URINE CLEAR; BILIRUBIN, URINE NEGATIVE (NEGATIVE); COLOR,URINE PALE YELLOW; GLUCOSE, URINE (UA) NEGATIVE (NEGATIVE); KETONES,URINE NEGATIVE (NEGATIVE); LEUKOCYTE ESTERASE ,URINE 1+ (NEGATIVE); NITRITE,URINE NEGATIVE (NEGATIVE); PH,URINE 5 (4.5-8.0); PROTEIN,URINE NEGATIVE (NEGATIVE); UROBILINOGEN,URINE NORMAL MG/DL (0.0-1.0)
--- NOTE | 2019-07-27 13:58 | Diagnostic Imaging Report ---
Indication: Headache Technique: Contiguous 5 mm thick transaxial imaging of the head obtained in a Siemens Sensation [address] scanner. Soft tissue and bone windows generated. Automatic Exposure Control was utilized. Total Dose length Product (DLP): 1394.[address] Dose Index Volume (CTDIvol): 62.7 mGy Comparison: 05/14/2019 Findings: The size and configuration of the cortical sulci, basal cisterns, and ventricles are within normal limits for age. There is a 3 mm focus of fat in the right lateral ventricle associated with the choroid plexus. 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 There is no mass effect, midline shift, or edema identified. There is no evidence of acute hemorrhage or abnormal intra-axial or extra-axial fluid collections. The bones and soft tissues are unremarkable. Impression: No mass effect, edema or acute bleed. 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 The CT scanner at [facility] is accredited by the [employer] and the scans are performed using dose optimization techniques as appropriate to a performed exam including Automatic Exposure control.
== END 2019-07-27 12:50 | disposition left against medical advice (07) ==
LOC: EDUNIT# 11:57 → EDBD 11:57 → EMR 12:50
DX: G40.909 Epilepsy, unspecified, not intractable, without status epilepticus (principal); I11.9 Hypertensive heart disease without heart failure; Z79.899 Other long term (current) drug therapy; Z53.29 Procedure and treatment not carried out because of patient's decision for other reasons; Z88.8 Allergy status to other drugs, medicaments and biological substances
CPT/HCPCS: 70450; 81003; 81025; 82962; 93005; Z7502; 99284

== ENCOUNTER 2019-07-30 13:39 | Emergency (ER) | payer MEDICAID ==
--- NOTE | 2019-07-30 13:21 | NUR ---
ED Nurse Note: pt to wr per lost charge card clerk prior to triage. pt a/ox4 no seizure activity.
--- NOTE | 2019-07-30 13:34 | NUR ---
ED Nurse Note:pt not in wr when called for triage.
--- NOTE | 2019-07-30 14:34 | Emergency Room Report ---
History of Present Illness General Chief Complaint: Left ankle pain Source: Patient, EMS Present Illness HPI 39-year-old female presents with slip and fall, left ankle pain, sharp in nature aggravated with movement, alleviated with rest severity is mild, intermittent, patient not hit her head Allergies: Coded Allergies: IODINE (Verified Allergy, Unknown, 04/16/19) KETOROLAC (Verified Allergy, Unknown, 04/16/19) LORAZEPAM (Unverified Allergy, Unknown, 03/12/19) Patient History Past Medical History: see triage record Reviewed Nursing Documentation: PMH: Agreed; PSxH: Agreed Nursing Documentation-PMH Hx Cardiac Problems: Yes Hx Hypertension: Yes Hx Pacemaker: No Hx Asthma: No Hx COPD: No Hx Diabetes: No Hx Cancer: No Hx Gastrointestinal Problems: No Hx Dialysis: No Hx Neurological Problems: No Hx Cerebrovascular Accident: No Hx Seizures: Yes Review of Systems All Other Systems: negative except mentioned in HPI Physical Exam General Appearance: well appearing, no apparent distress Head: normocephalic, atraumatic ENT: hearing grossly normal, normal voice Neck: full range of motion, supple Respiratory: no respiratory distress, speaking full sentences Musculoskeletal: other - Left lower extremity: 2+ PT DP, tenderness to palpation lateral posterior malleolus, fires EHL, 5-5 plantar dorsiflexion of the ankle, no obvious deformity 5-5 strength plantar dorsiflexion of the ankle Neurologic: alert, normal gait Psychiatric: mood/affect normal Skin: no rash Medical Decision Making Diagnostic Impression: Primary Impression: Left ankle sprain Qualified Codes: S93.402A - Sprain of unspecified ligament of left ankle, initial encounter ER Course 39-year-old female presents with left ankle pain differential diagnosis includes fracture, dislocation, sprain Patient left prior to completion of her evaluation, x-ray could not be conducted , she was no longer found in the waiting room Disposition: ELOPED Condition: Stable Referrals: [facility] [place],[facility]ERR (PCP) Jaylan Darden MD Jul 30, 2019 14:34
== END 2019-07-30 15:00 | disposition left against medical advice (07) ==
LOC: EDBD 13:39 → EMR 14:17
DX: Z53.21 Procedure and treatment not carried out due to patient leaving prior to being seen by health care provider (principal)

== ENCOUNTER 2019-08-06 12:41 | Emergency (ER) | payer MEDICAID ==
[~2019-08-06] VITALS: Ht 154.9 cm; Wt 93.9 kg
--- NOTE | 2019-08-06 12:45 | NUR ---
ED Nurse Note: Pt BIBA from [employer] d/t episodes of seizure x 2 with 30 mins duration each episode witnessed by co-workers. Pt now is AOx4, VSS, on RA. Placed on bed.
--- NOTE | 2019-08-06 12:50 | NUR ---
ED Nurse Note: Pt refused all PO medications despite nurse explaining importance, need, outcomes of not taking meds but still pt refused. Kam Whatley.
--- NOTE | 2019-08-06 12:50 | Emergency Room Report ---
History of Present Illness General Chief Complaint: Seizure Source: Patient Present Illness HPI Patient presents after a seizure activity it was reported this occurred about 20 minutes ago Patient has history of seizure disorder and has had multiple seizure activities over the past several months With talking to the patient she reports more than 20 in the past 2 months She reports that her primary physician is getting her a referral to a neurologist prior to Changing her Keppra dosage currently she is taking 500 mg twice a day Patient complains of back pain neck pain Denies any focal weakness denies any fevers or chills Allergies: Coded Allergies: IODINE (Verified Allergy, Unknown, 04/16/19) KETOROLAC (Verified Allergy, Unknown, 04/16/19) LORAZEPAM (Unverified Allergy, Unknown, 03/12/19) Patient History Past Medical History: see triage record Last Menstrual Period: 09/04/18 Now: No Reviewed Nursing Documentation: PMH: Agreed; PSxH: Agreed Nursing Documentation-PMH Past Medical History: No Stated History Hx Cardiac Problems: Yes Hx Hypertension: Yes Hx Pacemaker: No Hx Asthma: No Hx COPD: No Hx Diabetes: No Hx Cancer: No Hx Gastrointestinal Problems: No Hx Dialysis: No Hx Neurological Problems: No Hx Cerebrovascular Accident: No Hx Seizures: Yes Review of Systems All Other Systems: negative except mentioned in HPI Physical Exam Vital Signs Date Time Temp Pulse Resp B/P (MAP) Pulse Ox O2 Delivery O2 Flow Rate FiO2 08/06/19 12:36 98.6 88 18 137/92 (107) 96 Room Air Sp02 EP Interpretation: reviewed, normal General Appearance: well appearing - However appears uncomfortable with some aching in her back Head: normocephalic, atraumatic Eyes: bilateral eye PERRL, bilateral eye EOMI ENT: hearing grossly normal, normal pharynx, TMs + canals normal, uvula midline Neck: full range of motion, supple, no meningismus, no bony tend Respiratory: lungs clear, normal breath sounds, no rhonchi, no respiratory distress, no retraction, no accessory muscle use Cardiovascular #1: normal peripheral pulses, regular rate, rhythm, no edema, no gallop, no JVD, no murmur Gastrointestinal: normal bowel sounds, non tender, soft, no mass, no organomegaly, non-distended, no guarding, no hernia, no pulsatile mass, no rebound Musculoskeletal: normal inspection Neurologic: motor strength/tone normal, 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 III-XII nml as tested, oriented x3 , sensory intact, responsive Psychiatric: mood/affect normal Skin: no rash Lymphatic: normal inspection, no adenopathy Medical Decision Making Diagnostic Impression: Primary Impression: Seizure disorder ER Course Upon arrival the patient is awake and alert GCS 15 patient has significant history of repeat seizure disorders in the past Upon arrival I felt that the patient could use extra Keppra However after being placed in the gurney and after obtaining history Patient reports that she wants to leave And does not want any further medication patient has had multiple visits with AGAINST MEDICAL ADVICE dispositions At this time is leaving prior to Intervention being taken Rhythm Strip Diag. Results EP Interpretation: yes Rate: 88 Rhythm: NSR, no PVC's, no ectopy Last Vital Signs Date Time Temp Pulse Resp B/P (MAP) Pulse Ox O2 Delivery O2 Flow Rate FiO2 08/06/19 12:36 98.6 88 18 137/92 (107) 96 Room Air Status: improved Disposition: HOME, SELF-CARE Condition: Improved Additional Instructions: Patient is provided with the discharge instructions notified to follow up with primary doctor in the next 2-3 days otherwise return to the er with any worsening symptoms. Please note that this report is being documented using Trefis technology. This can lead to erroneous entry secondary to incorrect interpretation by the dictating instrument. Adolfo Humphrey DO Aug 06, 2019 12:50
[2019-08-06 12:59] VITALS: BP 134/90
== END 2019-08-06 12:59 | disposition home or self-care (01) ==
LOC: EDBD 12:41 → EMR 12:59
DX: G40.909 Epilepsy, unspecified, not intractable, without status epilepticus (principal); M54.9 Dorsalgia, unspecified; M54.2 Cervicalgia; I10 Essential (primary) hypertension
CPT/HCPCS: 80299; 99281

== ENCOUNTER 2019-08-31 14:50 | Emergency (ER) | payer MEDICAID ==
[~2019-08-31] VITALS: Ht 154.9 cm; Wt 93.9 kg
[2019-08-31] MEDS ORDERED: Morphine Sulfate 2mg/ml Inj(IV/IM USE ONLY) IVP ONE (15:15)
[2019-08-31] MEDS ORDERED: Omnipaque-300 100ml vial INJ PRN (15:15)
--- NOTE | 2019-08-31 15:25 | NUR ---
ED Nurse Note: Pt taken to CT.
--- NOTE | 2019-08-31 15:27 | NUR ---
ED Nurse Note: Pt walked into ED w/ c/o R lower abdominal pain for 3 days. Pain is 8/10 and pt is grimacing. Pt has had nausea and vomited 4x today, but denies blood in vomit. Pt is alert and orientedx4, ambulatory. Pt has been seem by .
[2019-08-31 15:39] VITALS: BP 159/110
[2019-08-31 15:54] LABS: APPEARANCE,URINE SLIGHTLY CLOUDY; BILIRUBIN, URINE NEGATIVE (NEGATIVE); COLOR,URINE PALE YELLOW; GLUCOSE, URINE (UA) NEGATIVE (NEGATIVE); KETONES,URINE NEGATIVE (NEGATIVE); LEUKOCYTE ESTERASE ,URINE 1+ (NEGATIVE); NITRITE,URINE NEGATIVE (NEGATIVE); PH,URINE 6.5 (4.5-8.0); PROTEIN,URINE 1+ (NEGATIVE); UROBILINOGEN,URINE NORMAL MG/DL (0.0-1.0)
[2019-08-31 15:56] LABS: ANION GAP 10 mmol/L (5-15); BLOOD UREA NITROGEN 8 mg/dL (7-18); CALCIUM 9.2 MG/DL (8.5-10.1); CARBON DIOXIDE 28 MMOL/L (21-32); CHLORIDE 105 MMOL/L (98-107); CREATININE 0.6 MG/DL (0.55-1.30); POTASSIUM 3.3 MMOL/L (3.5-5.1); SODIUM 143 MMOL/L (136-145)
[2019-08-31 15:57] LABS: EOSINOPHILS % (AUTO) 1.4 % (0.0-3.0); HEMATOCRIT 38.5 % (37.0-47.0); HEMOGLOBIN 13.5 G/DL (12.0-16.0); INR 0.9 (0.9-1.1); LYMPHOCYTES % (AUTO) 28.3 % (20.0-45.0); MEAN CORPUSCULAR VOLUME 91 FL (80-99); MONOCYTES % (AUTO) 4.9 % (1.0-10.0); NEUTROPHILS % (AUTO) 64.4 % (45.0-75.0); PLATELET COUNT 337 K/UL (150-450); RED BLOOD COUNT 4.23 M/UL (4.20-5.40); RED CELL DISTRIBUTION WIDTH 11.6 % (11.6-14.8); WHITE BLOOD COUNT 7.6 K/UL (4.8-10.8)
[2019-08-31 16:02] LABS: CREATINE KINASE 72 U/L (26-308)
--- NOTE | 2019-08-31 16:12 | Diagnostic Imaging Report ---
Indication: Headache Technique: Contiguous 5 mm thick transaxial imaging of the head obtained in a Siemens Sensation [address] scanner. Soft tissue and bone windows generated. Automatic Exposure Control was utilized. Total Dose length Product (DLP): 965.4mGycm CT Dose Index Volume (CTDIvol): 53.4 mGy Comparison: 07/27/2019 Findings: The size and configuration of the cortical sulci, basal cisterns, and ventricles are within normal limits for age. There is no mass effect, midline shift, or edema identified. There is no evidence of acute hemorrhage or abnormal intra-axial or extra-axial fluid collections. The bones and soft tissues are unremarkable. Impression: No mass effect, edema or acute bleed. The CT scanner at [facility] is accredited by the [employer] and the scans are performed using dose optimization techniques as appropriate to a performed exam including Automatic Exposure control.
--- NOTE | 2019-08-31 16:13 | Diagnostic Imaging Report ---
Indication: Chest pain Comparison: 06/18/2019 A single view chest radiograph was obtained. Findings: The interstitium of the lung is prominent which is probably a technical issue. Heart is normal in size. There is mild platelike atelectasis at the left lung base. Bones are unremarkable. Hilar and mediastinal contours are normal. IMPRESSION: No acute disease.
--- NOTE | 2019-08-31 16:15 | Diagnostic Imaging Report ---
INDICATION: Abdominal pain TECHNIQUE: Continuous helical transaxial imaging of the abdomen and pelvis was obtained from the lung bases to the pubic symphysis. No intravenous contrast was administered. Coronal 2-D reformats were also obtained. Automatic Exposure Control was utilized. Total Dose length Product (DLP): [address] Dose Index Volume (CTDIvol): 12.5 mGy Comparison: 05/14/2019 FINDINGS: Lungs: There is minimal atelectasis at the left lung base. The lung bases are otherwise clear. Liver: Unremarkable Gallbladder/biliary system: Cholecystectomy noted. No biliary ductal dilatation identified.. Spleen: Unremarkable Pancreas: Unremarkable Kidneys/Bladder: No definite stone or hydronephrosis are identified. The urinary bladder is unremarkable.. Adrenal glands: Unremarkable Bowel: There is no small bowel dilatation. Appendix is normal. Aorta/IVC: Unremarkable Peritoneum: Uterus is noted. There is no free fluid. Bones: There is a mild convexity of the lumbar spine to the left which may be positional. IMPRESSION: No acute findings. Status post cholecystectomy. Minimal left basal atelectasis Note: Evaluation of solid organs is limited on non contrast imaging. The CT scanner at [facility] is accredited by the [employer] and the scans are performed using dose optimization techniques as appropriate to a performed exam including Automatic Exposure control.
[2019-08-31 16:23] LABS: ALANINE AMINOTRANSFERASE 35 U/L (12-78); ALBUMIN 4.3 G/DL (3.4-5.0); ALBUMIN/GLOBULIN RATIO 1.1 (1.0-2.7); ALKALINE PHOSPHATASE 82 U/L (46-116); ASPARTATE AMINO TRANSFERASE 31 U/L (15-37); BILIRUBIN,TOTAL 0.1 MG/DL (0.2-1.0)
--- NOTE | 2019-08-31 16:33 | NUR ---
ED Nurse Note: Spoke to TRINA Darden about cardiac monitoring and pulse ox, and she said pt doesn't need it. TRINA notified pt pain still 9/10 after Morphine, PA states no new orders.
--- NOTE | 2019-08-31 16:46 | Emergency Room Report ---
History of Present Illness General Chief Complaint: Female Urogenital Problems Source: Patient (Katalina Platt) Present Illness HPI 39-year-old female with history of repeated seizures who has been here multiple times here complaining 1 week of nausea vomiting flank pain and urinary frequency and urgency. Patient appears to have right-sided tenderness. Immediately asked for stronger pain medication. Patient has previously left only. When not given enough doses of Dilaudid, hospitalist medication allergies. Patient usually signs AMA. Denies any recent travel, fever and chills, diffuse abdominal pain, diarrhea and constipation. Reports that last seizure activity was yesterday, patient reports that she is up-to-date with taking her Keppra. Denies at this time. COVID-19 risk:Travel to affect: No (Katalina Platt) Allergies: Coded Allergies: IODINE (Verified Allergy, Unknown, 04/16/19) KETOROLAC (Verified Allergy, Unknown, 04/16/19) LORAZEPAM (Unverified Allergy, Unknown, 03/12/19) Patient History Past Medical History: see triage record Past Surgical History: none Pertinent Family History: none Last Menstrual Period: 09/04/2017 Now: No Immunizations: UTD Reviewed Nursing Documentation: PMH: Agreed; PSxH: Agreed (Katalina Platt) Nursing Documentation-PMH Past Medical History: No History, Except For Hx Cardiac Problems: Yes Hx Hypertension: Yes Hx Pacemaker: No Hx Asthma: No Hx COPD: No Hx Diabetes: No Hx Cancer: No Hx Gastrointestinal Problems: No Hx Dialysis: No History Of Psychiatric Problem: No Hx Neurological Problems: No Hx Cerebrovascular Accident: No Hx Seizures: Yes (Katalina Platt) Review of Systems All Other Systems: negative except mentioned in HPI (Katalina Platt) Physical Exam Vital Signs Date Time Temp Pulse Resp B/P (MAP) Pulse Ox O2 Delivery O2 Flow Rate FiO2 08/31/19 14:57 98.6 94 18 169/112 (131) 99 Room Air Sp02 EP Interpretation: reviewed, normal General Appearance: no apparent distress, alert, GCS 15, non-toxic Head: normocephalic, atraumatic Eyes: bilateral eye normal inspection, bilateral eye PERRL ENT: hearing grossly normal, normal pharynx, no angioedema, normal voice Neck: full range of motion, supple, thyroid normal, no meningismus, supple/symm /no masses Respiratory: chest non-tender, lungs clear, normal breath sounds, no rhonchi, no respiratory distress, no retraction, no wheezing, speaking full sentences Cardiovascular #1: regular rate, rhythm, no edema, no murmur Gastrointestinal: non tender, soft, no peritonitis, no bruit, non-distended Genitourinary: CVA tenderness (R) Musculoskeletal: back normal, no calf tenderness Neurologic: alert, motor strength/tone normal, oriented x3, sensory intact, responsive, speech normal Psychiatric: judgement/insight normal, memory normal, mood/affect normal, no suicidal/homicidal ideation Skin: no rash Lymphatic: no adenopathy (Katalina Platt) Medical Decision Making PA Attestation All diagnoses and treatment plans were reviewed and discussed with my supervising physician Dr. Farrell (Katalina Platt) Diagnostic Impression: Primary Impression: UTI (urinary tract infection) Additional Impressions: Seizure disorder Malingering ER Course 39-year-old female with history of repeated seizures who has been here multiple times here complaining 1 week of nausea vomiting flank pain and urinary frequency and urgency. Patient appears to have right-sided tenderness. Immediately asked for stronger pain medication. Patient has previously left only. When not given enough doses of Dilaudid, hospitalist medication allergies. Patient usually signs AMA. Denies any recent travel, fever and chills, diffuse abdominal pain, diarrhea and constipation. Reports that last seizure activity was yesterday, patient reports that she is up-to-date with taking her Keppra. Denies at this time. Ddx considered but are not limited to: UTI, pyelonephritis, urinary incontinence , prolapsed bladder, renal stone Vital signs: are WNL, pt. is afebrile H&PE are most consistent with: UTI without pyelonephritis ORDERS: UA, urine cx, urine , CBC, CMP, lipase, serum alcohol level, tox screen, Keppra levels, troponin, EKG, chest x-ray, CT abdomen pelvis without contrast the patient is allergic to iodine and that is the only contrast we have, CT head no contrast, Keflex, Zofran, Tylenol ED INTERVENTIONS: NS bolus, 2 g of morphine , Zofran DISCHARGE: At this time pt. is stable for d/c to home. Will provide printed patient care instructions, and any necessary prescriptions. Care plan and follow up instructions have been discussed with the patient prior to discharge. Patient to follow-up primary care provider, patient torn the papers and prescriptions the paperwork and said that she will leave without signing papers , after I told her that we will not give any strong pain medication to her. Malingering has been since. (Katalina Platt) EKG Diagnostic Results Rate: normal Rhythm: NSR ST Segments: no acute changes Other Impression No acute ST changes (Katalina Platt) Chest X-Ray Diagnostic Results Chest X-Ray Diagnostic Results : Chest X-Ray Ordered: Yes Indication: Other EP Interpretation: Yes PA Xray: Interpretation reviewed, by supervising MD, and agrees with findings. Interpretation: no consolidation, no effusion, no pneumothorax Impression: No acute disease Electronically Signed by: Katalina Nolen PA-C (Katalina Platt) Chest X-Ray Diagnostic Results : Electronically Signed by: nOi Quiles documentation of Xray reviewed by me and is accurate, Donny Farrell MD (Donny Farrell MD) CT/MRI/US Diagnostic Results CT/MRI/US Diagnostic Results #1: Imaging Test Ordered: CT head no contrast Impression No intracranial bleed, within normal limits CT/MRI/US Diagnostic Results #2: Imaging Test Ordered: CT abdomen pelvis no contrast Impression Within normal limits, no pyelonephritis noted (Katalina Platt) Last Vital Signs Date Time Temp Pulse Resp B/P (MAP) Pulse Ox O2 Delivery O2 Flow Rate FiO2 08/31/19 16:17 98.6 08/31/19 15:39 88 20 159/110 99 Room Air (Katalina Platt) Disposition: HOME, SELF-CARE Condition: Stable Scripts Acetaminophen* (TYLENOL EXTRA STRENGTH*) 500 Mg Tablet 500 MG ORAL Q8H PRN for Prn Headache/Temp > 101, #30 TAB 0 Refills Prov: Katalina Platt 08/31/19 Cephalexin* (KEFLEX*) 500 Mg Capsule 500 MG ORAL EVERY 6 HOURS for 7 Days, #28 CAP Prov: Katalina Platt 08/31/19 Ondansetron (Zofran) 4 Mg Tablet 4 MG ORAL Q6H PRN for Nausea & Vomiting, #10 TAB Prov: Katalina Platt 08/31/19 Referrals: NON PHYSICIAN (PCP) Patient Instructions: Seizure, Adult, Urinary Tract Infection Additional Instructions: Take medication as directed, follow-up with your neurologist regarding her seizure activity, increase oral hydration, if worsening symptoms return to the emergency room Katalina Platt Aug 31, 2019 16:46 Donny Farrell MD Sep 01, 2019 14:07
[2019-08-31] MEDS ORDERED: CEPHALEXIN500 MG ORAL (16:47)
[2019-08-31] MEDS ORDERED: ZOFRAN4 M1 ORAL (16:47)
[2019-08-31] MEDS ORDERED: TYLENOL EXTRA500 MG ORAL (16:47)
--- NOTE | 2019-08-31 16:54 | NUR ---
ER DISCHARGE NOTE: Patient is cleared to be discharged per ERMD, pt is aox4, on room air, with stable vital signs. Pt ripped out own IV, pt given prescriptions then ripped them apart nd said "tell her she can stick them up her ass." refused to sign d/c papers. pt is able to ambulate with steady gait. pt took all belongings.
[2019-08-31 16:55] VITALS: BP 152/101
== END 2019-08-31 17:07 | disposition home or self-care (01) ==
LOC: EMR 15:36
DX: N39.0 Urinary tract infection, site not specified (principal); G40.909 Epilepsy, unspecified, not intractable, without status epilepticus; Z76.5 Malingerer [conscious simulation]; I10 Essential (primary) hypertension; Z79.899 Other long term (current) drug therapy; Z88.8 Allergy status to other drugs, medicaments and biological substances; Z90.49 Acquired absence of other specified parts of digestive tract; R11.2 Nausea with vomiting, unspecified; R51 Headache; R07.9 Chest pain, unspecified
CPT/HCPCS: 36415; 70450; 71045; 74176; 80053; 80299; 80307; 81003; 81025; 82550; 82962; 83690; 84484; 85025; 85610; 85730; 93005; 96361; 96374; 96375; G0480; J2270; J2405; J7030; Z7502; 99284

== ENCOUNTER 2019-09-24 13:42 | Emergency (ER) | payer MEDICAID ==
[~2019-09-24] VITALS: Ht 154.9 cm; Wt 91.2 kg
[~2019-09-24 13:42] MED LIST changes: +CEPHALEXIN500 MG ORAL; +ZOFRAN4 M1 ORAL
[2019-09-24 13:45] VITALS: BP 125/87
--- NOTE | 2019-09-24 13:45 | NUR ---
[facility] Nurse Note: pt brought in by ambulance from work after having x2 unwitnessed seizure at work. pt denied head injury. pt aao x4 and ambulatory but weak. calm and cooperative. skin clean and intact. no skin bruise or wound noted. no cardiac or pulmonary distress noted. pt was able to recall before and after situation of seizure. 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
[2019-09-24 13:46] VITALS: BP 118/82
--- NOTE | 2019-09-24 13:50 | NUR ---
ED Nurse Note: pt refused iv insertion and all the lab works. BOLIVARD made aware.
--- NOTE | 2019-09-24 13:53 | Emergency Room Report ---
History of Present Illness General Chief Complaint: Seizure Source: Patient, Medical Record Present Illness HPI Disclaimer: Please note that this report is being documented using DRAGON technology. This can lead to erroneous entry secondary to incorrect interpretation by the dictating instrument. HPI: 39-year-old female with history of seizure disorder presents for evaluation after witnessed seizure. 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 She was lowered to the ground by her coworkers and did not sustain a head injury. Seizures were short lived. Aborted spontaneously. She has not received medication prior to arrival. She was found febrile by EMS with an oral temperature of 38 degrees but arrives afebrile here. Other vital signs were within normal limits. She is awake alert and ambulatory at this time. She is complaining of a headache and urinary frequency and some dysuria over the past few days. She was recently treated with Keflex. She states she is been compliant with her Keppra therapy and recently had her dose is increased by her neurologist to 500 mg twice daily. She reports a sore throat but denies nasal congestion, raspy voice, throat swelling, cough, chest pain, palpitations, shortness of breath. She does report nausea. PMH: Seizure disorder PSH: Reviewed Allergies: Iodine contrast, Toradol Social Hx: Denies alcohol or drug abuse Allergies: Coded Allergies: IODINE (Verified Allergy, Unknown, 04/16/19) KETOROLAC (Verified Allergy, Unknown, 04/16/19) LORAZEPAM (Unverified Allergy, Unknown, 03/12/19) COVID-19 Screening Contact w/high risk pt: No Recent Travel to affected area: No Experienced COVID-19 symptoms?: No Nursing Documentation-PMH Past Medical History: No History, Except For Hx Cardiac Problems: Yes Hx Hypertension: Yes Hx Pacemaker: No Hx Asthma: No Hx COPD: No Hx Diabetes: No Hx Cancer: No Hx Gastrointestinal Problems: No Hx Dialysis: No Hx Neurological Problems: No Hx Cerebrovascular Accident: No Hx Seizures: Yes Review of Systems All Other Systems: negative except mentioned in HPI Physical Exam Vital Signs Date Time Temp Pulse Resp B/P (MAP) Pulse Ox O2 Delivery O2 Flow Rate FiO2 09/24/19 13:46 98.6 90 16 118/82 (94) 99 Room Air General: Awake and alert, no acute distress HEENT: NC/AT. EOMI. PERRLA. No nystagmus. Cardiovascular: RRR. S1 and S2 normal. No murmur appreciated Resp: Normal work of breathing. No cough, wheezing or crackles appreciated Abdomen: Abdomen is soft, nondistended. Nontender Skin: Intact. No abrasions, laceration or rash over the exposed skin MSK: Normal tone and bulk. Moving all extremities. No obvious deformity. Ambulating with a steady gait Neuro: Awake and alert. Mentating appropriately. Ambulating with steady gait. No nystagmus. Medical Decision Making Diagnostic Impression: Primary Impression: Seizure Additional Impression: Left against medical advice ER Course This a 39-year-old female presenting for evaluation of seizure and dysuria. Arrives with stable vital signs, afebrile no acute distress. No head injury was reported by bystanders as she was helped to the floor when she began seizing. Shortly after I left the room I was informed that the patient was refusing IV, labs, medications and any further treatment. She was originally pleasant and cooperative during my history taking and physical exam. At that time she seemed to agree to medical evaluation and treatment. She did not give a reason for this change but simply stating that she did not want to stay at the hospital any longer and that she wanted to go home. She did not want any adjustments of her medications, prescriptions for antibiotics, any further testing or medical interventions at this time. I explained to her that her seizures may be caused by electrolyte abnormalities, systemic infection or other medical conditions that could potentially be life-threatening however she chose to leave AGAINST MEDICAL ADVICE, signed discharge paperwork, and left the emergency department. Upon review of hospital records it seems the patient has presented similarly in the past. I informed her she can return to the emergency department anytime for reevaluation prior to her departing. Last Vital Signs Date Time Temp Pulse Resp B/P (MAP) Pulse Ox O2 Delivery O2 Flow Rate FiO2 09/24/19 13:46 98.6 90 16 118/82 (94) 99 Room Air Disposition: AGAINST MEDICAL ADVICE Condition: Stable James Gallegos MD Sep 24, 2019 13:53
[2019-09-24] MEDS ORDERED: levETIRAcetam 1,000mg/NS100ml 100 ML IVPB ONE (14:00)
[2019-09-24] MEDS ORDERED: Acetaminophen 500mg (ES) tab ORAL ONE (14:00)
--- NOTE | 2019-09-24 14:19 | NUR ---
ED Nurse Note: nurse found pt putting her clothes on shortly after ERMD left bedside. ERMD made aware and spoke to pt with nurse. pt stated "There is nothing wrong with anything. I just want to take Tylenol at home. Can I sign on AMA paper?" pt was aware of the risk of leaving AMA and pt insisted despite ERMD and nurse tried to convince her. pt denied to answer what she wants to stay or what kind of treatment but pt repeatly said "Bring me AMA paper right now before I just walk out." AMA paper signed by pt with ERMD at the same time and pt walked out without letting nurse check last set of vital signs. pt took all her belongings.
== END 2019-09-24 14:19 | disposition left against medical advice (07) ==
LOC: EDBD 13:42 → EMR 14:05
DX: G40.909 Epilepsy, unspecified, not intractable, without status epilepticus (principal); R30.0 Dysuria; Z88.8 Allergy status to other drugs, medicaments and biological substances; I10 Essential (primary) hypertension
CPT/HCPCS: 99282